=== PATIENT | male | born 1940 | race Caucasian/White ===

== ENCOUNTER 2018-03-16 09:47 | Inpatient (IN) ==
[2018-03-16] MEDS ORDERED: SODIUM CHLORIDE 0.9% 2,000 ML IV STA (10:35)
[2018-03-16] MEDS ORDERED: cefTRIAXone 1,000 MG in SODIUM CHLORIDE 0.9% 100 ML IV STA (10:35)
[2018-03-16 10:54] LABS: Basophils % 0.1 % (0.0-0.8); Hemoglobin 11.3 GM/DL (14.0-18.0); Immature Granulocytes % 0.8 %; Immature Granulocytes Absolute 0.08 #; Lymphocytes # 0.7 10*3/uL (1.4-4.0); Lymphocytes % 6.6 % (21.2-54.2); Mean Corpuscular HGB Conc 33.2 GM/DL (32-36); Mean Corpuscular Hemoglobin 32 PG (27-34); Mean Platelet Volume 11.4 FL (9.6-12.0); Monocytes # 0.9 10*3/uL (0.11-0.8); Monocytes % 8.7 % (1.7-12.7); Neutrophils # 8.6 10*3/uL (1.4-7.4); Neutrophils % 83.8 % (38.7-73.9); Platelet Count 160 T/CUMM (130-400); Red Blood Count 3.54 MC/CUMM (3.8-5.5); Red Cell Distribution Width 13.1 % (9.3-17.3); White Blood Count 10.3 T/CUMM (4-12)
[2018-03-16] MEDS ORDERED: DOPamine 800 MG/250 ML PREMIX IV PRN (11:32)
[2018-03-16] MEDS ORDERED: VANCOMYCIN INJ 1,000 MG in SODIUM CHLORIDE 0.9% 250 ML IV STA (11:58)
[2018-03-16 12:48] LABS: Albumin 3.1 G/DL (3.4-5.0); Bilirubin,Total 1.11 MG/DL (0.2-1.0); Calcium 9.2 MG/DL (8.5-10.1); Osmolality,Calculated 282.8 MOS/KG (273-304); Potassium 3.6 MMOL/L (3.5-5.1); Total Protein 6.5 G/DL (6.4-8.3)
[2018-03-16 13:04] LABS: Band Neutrophils 10 % (0-10); Lymphocytes 3 % (20-55); Segmented Neutrophils 80 % (50-85); Total Cells Counted 100
[2018-03-16 13:11] LABS: Hypochromasia Slight; Platelet Estimate Adequate; Poikilocytosis Slight
[2018-03-16] MEDS ORDERED: GLUCAGON 1 MG VIAL IM PRN (13:39)
[2018-03-16] MEDS ORDERED: DEXTROSE 50% 25 GM/50 ML VIAL IV PRN (13:39)
[2018-03-16] MEDS ORDERED: ZALEPLON 5 MG CAPSULE PO PRN (13:39)
[2018-03-16] MEDS: SODIUM CHLORIDE 0.9% 1,000 ML IV SCH ×2 (15:05→23:00)
[2018-03-16 16:30] LABS: Apearance,Urine Slightly Hazy (Clear); Bilirubin,Urine Negative (Negative); Blood, Urine Large mg/dL (Negative); Glucose,Urine (UA) Negative (Negative); Ketones,Urine Negative (Negative); Mucus,Urine Occasional /LPF (Occasional); Nitrite,Urine Negative (Negative); Protein,Urine 30 MG/DL; RBC,Urine 274 /HPF (0-4); Squamous Epithelial Cell,Urine Occasional /HPF (0-10); Urine Color Yellow (Yellow); Urine Specific Gravity 1.013 (1.001-1.035); Urine Urobilinogen < 2.0 EU/DL (0.2-1.0); WBC,Urine 7 /HPF (0-6)
[2018-03-16] MEDS: AZITHROMYCIN INJ 500 MG in SODIUM CHLORIDE 0.9% 250 ML IV SCH (17:08)
[2018-03-16] MEDS: INSULIN REGULAR 100 UNIT/ML SUBCUT SCH ×2 (17:09→21:07)
[2018-03-16] MEDS ORDERED: WARFARIN 4 MG TABLET PO SCH (18:00)
[2018-03-16] MEDS: ALBUTEROL/IPRATROPIUM 3 ML NEB RESP TX SCH (20:10)
[2018-03-16] MEDS: SIMVASTATIN 40 MG TABLET PO SCH (21:07)
[2018-03-16 23:11] LABS: ABG Base Excess -6.3 MMOL/L (-2.5-2.5); ABG HCO3 19.3 MMOL/L (20-26); ABG Oxygen Saturation 97.1 % (95-100); ABG PCO2 32.5 MM HG (35-48); ABG PH 7.359 (7.35-7.45); ABG PO2 95.8 MM HG (80-95); ABG TCO2 16.5 MMOL/L (23-27); Allen Test Positive; Pt O2 Delivery Device Other
[2018-03-16] MEDS ORDERED: POTASSIUM CHLORIDE 20 MEQ TABLET PO ONE (23:38)
[2018-03-16] MEDS ORDERED: diphenhydrAMINE 50 MG/1 ML VIAL IV ONE (23:38)
[2018-03-17] MEDS: ALBUTEROL/IPRATROPIUM 3 ML NEB RESP TX SCH ×4 (00:30→19:51)
[2018-03-17 03:06] LABS: Basophils % 0.2 % (0.0-0.8); Hemoglobin 10.3 GM/DL (14.0-18.0); Immature Granulocytes % 2.1 %; Immature Granulocytes Absolute 0.26 #; Lymphocytes # 0.7 10*3/uL (1.4-4.0); Lymphocytes % 5.9 % (21.2-54.2); Mean Corpuscular HGB Conc 33.2 GM/DL (32-36); Mean Corpuscular Hemoglobin 31 PG (27-34); Mean Corpuscular Volume 94.5 FL (87-102); Mean Platelet Volume 11.5 FL (9.6-12.0); Monocytes # 0.8 10*3/uL (0.11-0.8); Monocytes % 6.7 % (1.7-12.7); Neutrophils # 10.5 10*3/uL (1.4-7.4); Neutrophils % 85.1 % (38.7-73.9); Platelet Count 148 T/CUMM (130-400); Red Blood Count 3.28 MC/CUMM (3.8-5.5); Red Cell Distribution Width 13.4 % (9.3-17.3); White Blood Count 12.3 T/CUMM (4-12)
[2018-03-17 03:19] LABS: INR 4.1
[2018-03-17 03:24] LABS: PT Patient Result 40.8 SECS
[2018-03-17 03:35] LABS: Calcium 7.7 MG/DL (8.5-10.1); Osmolality,Calculated 289.1 MOS/KG (273-304); Potassium 4.3 MMOL/L (3.5-5.1)
[2018-03-17 03:44] LABS: Band Neutrophils 18 % (0-10); Hypochromasia Slight; Lymphocytes 10 % (20-55); Metamyelocytes 4 %; Myelocytes 2 %; Segmented Neutrophils 62 % (50-85); Total Cells Counted 100
[2018-03-17 03:45] LABS: Ovalocytes 1+; Platelet Estimate Normal
[2018-03-17 03:46] LABS: Polychromasia Few
[2018-03-17] MEDS: INSULIN REGULAR 100 UNIT/ML SUBCUT SCH ×3 (08:15→17:58)
[2018-03-17] MEDS: ASPIRIN EC 81 MG TABLET PO SCH (09:44)
[2018-03-17] MEDS: MAGNESIUM OXIDE 400 MG TABLET PO SCH (09:44)
[2018-03-17] MEDS: PANTOPRAZOLE 40 MG TABLET PO SCH (09:44)
[2018-03-17] MEDS: cefTRIAXone 1,000 MG in SYRINGE 1 EACH IV SCH (09:45)
[2018-03-17] MEDS: SODIUM CHLORIDE 0.9% 1,000 ML IV SCH ×2 (10:05→18:25)
[2018-03-17] MEDS: ACETAMINOPHEN 325 MG TABLET PO PRN (15:10)
[2018-03-17] MEDS: AZITHROMYCIN INJ 500 MG in SODIUM CHLORIDE 0.9% 250 ML IV SCH (16:08)
[2018-03-17] MEDS ORDERED: FUROSEMIDE 40 MG/4 ML VIAL IV ONE (16:51)
[2018-03-17] MEDS ORDERED: PHYTONADIONE 5 MG/5 ML ORAL.SYR PO ONE (18:00)
[2018-03-17] MEDS: LUNESTA 1 MG PO SCH (20:59)
[2018-03-17] MEDS: SIMVASTATIN 40 MG TABLET PO SCH (20:59)
[2018-03-17] MEDS: METOPROLOL TARTRATE 25 MG TABLET PO SCH (21:08)
[2018-03-18] MEDS: INSULIN REGULAR 100 UNIT/ML SUBCUT SCH ×5 (00:25→21:17)
[2018-03-18] MEDS: ALBUTEROL/IPRATROPIUM 3 ML NEB RESP TX SCH ×4 (00:51→19:18)
[2018-03-18 03:42] LABS: Basophils % 0.2 % (0.0-0.8); Eosinophils % 0.1 % (0.00-10.9); Hematocrit 30.5 VOL% (42.0-52.0); Hemoglobin 10.3 GM/DL (14.0-18.0); Immature Granulocytes % 0.3 %; Immature Granulocytes Absolute 0.04 #; Lymphocytes # 0.8 10*3/uL (1.4-4.0); Lymphocytes % 5.9 % (21.2-54.2); Mean Corpuscular HGB Conc 33.8 GM/DL (32-36); Mean Corpuscular Hemoglobin 31 PG (27-34); Mean Platelet Volume 11.7 FL (9.6-12.0); Monocytes # 0.7 10*3/uL (0.11-0.8); Monocytes % 5.1 % (1.7-12.7); Neutrophils # 11.6 10*3/uL (1.4-7.4); Neutrophils % 88.4 % (38.7-73.9); Platelet Count 169 T/CUMM (130-400); Red Blood Count 3.28 MC/CUMM (3.8-5.5); Red Cell Distribution Width 13.5 % (9.3-17.3); White Blood Count 13.1 T/CUMM (4-12)
[2018-03-18 03:48] LABS: INR 2.6
[2018-03-18 04:04] LABS: Albumin 2.2 G/DL (3.4-5.0); Calcium 7.9 MG/DL (8.5-10.1); Osmolality,Calculated 284.4 MOS/KG (273-304); Potassium 3.7 MMOL/L (3.5-5.1)
[2018-03-18 04:33] LABS: PT Patient Result 26.3 SECS
[2018-03-18 04:49] LABS: Band Neutrophils 4 % (0-10); Lymphocytes 3 % (20-55); Segmented Neutrophils 88 % (50-85); Total Cells Counted 100
[2018-03-18 04:50] LABS: Microcytosis Slight; Platelet Estimate Adequate
[2018-03-18] MEDS: METOPROLOL TARTRATE 25 MG TABLET PO SCH ×3 (08:44→21:05)
[2018-03-18] MEDS: ONDANSETRON 4 MG/2 ML VIAL IV PRN (08:44)
[2018-03-18] MEDS: cefTRIAXone 1,000 MG in SYRINGE 1 EACH IV SCH (08:45)
[2018-03-18] MEDS: LEVOFLOXACIN INJ 750 MG in PREMIX 1 EACH IV SCH (10:14)
[2018-03-18] MEDS: PANTOPRAZOLE 40 MG TABLET PO SCH (14:55)
[2018-03-18] MEDS: MAGNESIUM OXIDE 400 MG TABLET PO SCH (14:56)
[2018-03-18] MEDS: ASPIRIN EC 81 MG TABLET PO SCH (14:56)
[2018-03-18] MEDS: AZITHROMYCIN INJ 500 MG in SODIUM CHLORIDE 0.9% 250 ML IV SCH (16:20)
[2018-03-18] MEDS ORDERED: FUROSEMIDE 40 MG/4 ML VIAL IV ONE (16:29)
[2018-03-18] MEDS: GABAPENTIN 100 MG CAPSULE PO SCH ×2 (19:34→21:17)
[2018-03-18] MEDS: SIMVASTATIN 40 MG TABLET PO SCH (21:17)
[2018-03-18] MEDS: LUNESTA 1 MG PO SCH (21:17)
[2018-03-19] MEDS: ALBUTEROL/IPRATROPIUM 3 ML NEB RESP TX SCH ×4 (01:36→19:40)
[2018-03-19 04:13] LABS: Basophils % 0.2 % (0.0-0.8); Eosinophils % 0.2 % (0.00-10.9); Hematocrit 32.2 VOL% (42.0-52.0); Immature Granulocytes % 0.5 %; Immature Granulocytes Absolute 0.06 #; Lymphocytes # 0.8 10*3/uL (1.4-4.0); Mean Corpuscular HGB Conc 34.2 GM/DL (32-36); Mean Corpuscular Hemoglobin 32 PG (27-34); Mean Corpuscular Volume 93.3 FL (87-102); Monocytes # 0.7 10*3/uL (0.11-0.8); Monocytes % 5.7 % (1.7-12.7); Neutrophils % 86.4 % (38.7-73.9); Platelet Count 171 T/CUMM (130-400); Red Blood Count 3.45 MC/CUMM (3.8-5.5); Red Cell Distribution Width 13.2 % (9.3-17.3); White Blood Count 11.5 T/CUMM (4-12)
[2018-03-19 04:21] LABS: INR 1.2; PT Patient Result 12.2 SECS
[2018-03-19 04:43] LABS: Calcium 8.3 MG/DL (8.5-10.1); Osmolality,Calculated 282.7 MOS/KG (273-304)
[2018-03-19 04:58] LABS: Band Neutrophils 4 % (0-10); Eosinophils 1 % (0-10); Hypochromasia 1+; Lymphocytes 8 % (20-55); Ovalocytes Slight; Platelet Estimate Adequate; Segmented Neutrophils 80 % (50-85); Total Cells Counted 100
[2018-03-19 04:59] LABS: Microcytosis Slight
[2018-03-19] MEDS ORDERED: MAGNESIUM SULF RIDER 4 GM in PREMIX 1 EACH IV PRN (07:38)
[2018-03-19] MEDS: DORNASE ALFA 2.5 MG/2.5 ML VIAL RESP TX SCH ×2 (09:30→19:48)
[2018-03-19] MEDS: METOPROLOL TARTRATE 25 MG TABLET PO SCH ×3 (09:46→20:45)
[2018-03-19] MEDS: PANTOPRAZOLE 40 MG TABLET PO SCH (09:47)
[2018-03-19] MEDS: POTASSIUM CHLORIDE 20 MEQ TABLET PO SCH ×3 (09:47→17:29)
[2018-03-19] MEDS: cefTRIAXone 1,000 MG in SYRINGE 1 EACH IV SCH (09:48)
[2018-03-19] MEDS: MAGNESIUM OXIDE 400 MG TABLET PO SCH (09:48)
[2018-03-19] MEDS: ASPIRIN EC 81 MG TABLET PO SCH (09:48)
[2018-03-19] MEDS: GABAPENTIN 100 MG CAPSULE PO SCH ×3 (09:49→20:45)
[2018-03-19] MEDS: INSULIN REGULAR 100 UNIT/ML SUBCUT SCH ×4 (09:59→20:45)
[2018-03-19] MEDS: LEVOFLOXACIN INJ 750 MG in PREMIX 1 EACH IV SCH (10:00)
[2018-03-19] MEDS: MAGNESIUM SULF RIDER 2 GM in PREMIX 1 EACH IV PRN (11:41)
[2018-03-19] MEDS ORDERED: DIGOXIN 0.5 MG/2 ML AMP IV ONE (13:58)
[2018-03-19] MEDS: WARFARIN 4 MG TABLET PO SCH (17:29)
[2018-03-19] MEDS ORDERED: DIGOXIN 0.25 MG TABLET PO ONE (20:00)
[2018-03-19] MEDS: SIMVASTATIN 40 MG TABLET PO SCH (20:44)
[2018-03-19] MEDS: LUNESTA 1 MG PO SCH (20:44)
[2018-03-20] MEDS: ALBUTEROL/IPRATROPIUM 3 ML NEB RESP TX SCH ×4 (01:10→19:23)
[2018-03-20 04:27] LABS: Basophils % 0.1 % (0.0-0.8); Eosinophils % 0.2 % (0.00-10.9); Hematocrit 30.2 VOL% (42.0-52.0); Hemoglobin 10.4 GM/DL (14.0-18.0); Immature Granulocytes % 0.8 %; Lymphocytes # 0.9 10*3/uL (1.4-4.0); Lymphocytes % 7.6 % (21.2-54.2); Mean Corpuscular HGB Conc 34.4 GM/DL (32-36); Mean Corpuscular Hemoglobin 32 PG (27-34); Mean Corpuscular Volume 91.5 FL (87-102); Mean Platelet Volume 12.5 FL (9.6-12.0); Monocytes # 0.8 10*3/uL (0.11-0.8); Monocytes % 6.2 % (1.7-12.7); Neutrophils # 10.2 10*3/uL (1.4-7.4); Neutrophils % 85.1 % (38.7-73.9); Platelet Count 164 T/CUMM (130-400); Red Cell Distribution Width 13.3 % (9.3-17.3)
[2018-03-20 04:32] LABS: INR 1.3; PT Patient Result 13.1 SECS
[2018-03-20 04:56] LABS: Calcium 8.3 MG/DL (8.5-10.1); Osmolality,Calculated 275.1 MOS/KG (273-304); Potassium 3.6 MMOL/L (3.5-5.1)
[2018-03-20] MEDS: DORNASE ALFA 2.5 MG/2.5 ML VIAL RESP TX SCH ×2 (07:48→19:23)
[2018-03-20] MEDS: INSULIN REGULAR 100 UNIT/ML SUBCUT SCH ×3 (09:26→17:08)
[2018-03-20] MEDS: MAGNESIUM OXIDE 400 MG TABLET PO SCH (09:27)
[2018-03-20] MEDS: ASPIRIN EC 81 MG TABLET PO SCH (09:27)
[2018-03-20] MEDS: PANTOPRAZOLE 40 MG TABLET PO SCH (09:27)
[2018-03-20] MEDS: cefTRIAXone 1,000 MG in SYRINGE 1 EACH IV SCH (09:28)
[2018-03-20] MEDS: METOPROLOL TARTRATE 25 MG TABLET PO SCH ×3 (09:28→21:21)
[2018-03-20] MEDS: GABAPENTIN 100 MG CAPSULE PO SCH ×3 (09:28→21:21)
[2018-03-20] MEDS: LEVOFLOXACIN INJ 750 MG in PREMIX 1 EACH IV SCH (09:31)
[2018-03-20] MEDS ORDERED: DIGOXIN 0.125 MG TABLET PO SCH (13:00)
[2018-03-20] MEDS: WARFARIN 4 MG TABLET PO SCH (17:08)
[2018-03-20] MEDS: ACETAMINOPHEN 325 MG TABLET PO PRN (17:08)
[2018-03-20] MEDS: SIMVASTATIN 40 MG TABLET PO SCH (21:21)
[2018-03-20] MEDS: LUNESTA 1 MG PO SCH (21:22)
[2018-03-21] MEDS: ALBUTEROL/IPRATROPIUM 3 ML NEB RESP TX SCH ×4 (00:34→19:22)
[2018-03-21 04:12] LABS: Basophils % 0.2 % (0.0-0.8); Eosinophils % 0.1 % (0.00-10.9); Hematocrit 34.4 VOL% (42.0-52.0); Immature Granulocytes % 0.9 %; Immature Granulocytes Absolute 0.12 #; Lymphocytes # 0.8 10*3/uL (1.4-4.0); Lymphocytes % 5.5 % (21.2-54.2); Mean Corpuscular HGB Conc 34.9 GM/DL (32-36); Mean Corpuscular Hemoglobin 32 PG (27-34); Mean Corpuscular Volume 90.8 FL (87-102); Mean Platelet Volume 11.7 FL (9.6-12.0); Monocytes # 0.7 10*3/uL (0.11-0.8); Neutrophils # 12.5 10*3/uL (1.4-7.4); Neutrophils % 88.3 % (38.7-73.9); Platelet Count 203 T/CUMM (130-400); Red Blood Count 3.79 MC/CUMM (3.8-5.5); Red Cell Distribution Width 13.2 % (9.3-17.3); White Blood Count 14.1 T/CUMM (4-12)
[2018-03-21 04:22] LABS: INR 1.5; PT Patient Result 16.1 SECS
[2018-03-21 04:58] LABS: Calcium 8.3 MG/DL (8.5-10.1); Osmolality,Calculated 279.8 MOS/KG (273-304); Potassium 3.8 MMOL/L (3.5-5.1)
[2018-03-21] MEDS: INSULIN REGULAR 100 UNIT/ML SUBCUT SCH ×4 (07:02→17:34)
[2018-03-21] MEDS: DORNASE ALFA 2.5 MG/2.5 ML VIAL RESP TX SCH ×2 (07:20→19:22)
[2018-03-21] MEDS ORDERED: AMIODARONE INJ 150 MG in DEXTROSE 5% 100 ML IV ONE (09:16)
[2018-03-21] MEDS ORDERED: RIVAROXABAN 20 MG TABLET PO ONE (09:20)
[2018-03-21] MEDS: GABAPENTIN 100 MG CAPSULE PO SCH ×3 (09:26→20:51)
[2018-03-21] MEDS: ASPIRIN EC 81 MG TABLET PO SCH (09:26)
[2018-03-21] MEDS: cefTRIAXone 1,000 MG in SYRINGE 1 EACH IV SCH (09:26)
[2018-03-21] MEDS: MAGNESIUM OXIDE 400 MG TABLET PO SCH (09:26)
[2018-03-21] MEDS: METOPROLOL TARTRATE 25 MG TABLET PO SCH ×3 (09:26→20:50)
[2018-03-21] MEDS: PANTOPRAZOLE 40 MG TABLET PO SCH (09:26)
[2018-03-21] MEDS: MAGNESIUM SULF RIDER 2 GM in PREMIX 1 EACH IV PRN (09:27)
[2018-03-21] MEDS ORDERED: AMIODARONE INJ 450 MG in DEXTROSE 5% 241 ML IV SCH (09:30)
[2018-03-21] MEDS: PIPERACILLIN/TAZOBACTAM 3,375 MG in SODIUM CHLORIDE 0.9% 100 ML IV SCH ×2 (11:29→17:35)
[2018-03-21] MEDS ORDERED: AMIODARONE 200 MG TABLET PO ONE ×2 (13:36→17:03)
[2018-03-21] MEDS ORDERED: diphenhydrAMINE CAP 25 MG CAPSULE PO ONE (13:55)
[2018-03-21] MEDS ORDERED: MAGNESIUM SULF RIDER 2 GM in PREMIX 1 EACH IV PRN (13:55)
[2018-03-21] MEDS ORDERED: DIAZEPAM 5 MG TABLET PO ONE (13:55)
[2018-03-21] MEDS ORDERED: POTASSIUM CHLORIDE RIDER 10 MEQ in PREMIX 1 EACH IV PRN (13:55)
[2018-03-21] MEDS ORDERED: diphenhydrAMINE CAP 25 MG CAPSULE ONE (14:00)
[2018-03-21] MEDS ORDERED: SODIUM CHLORIDE 0.45% 1,000 ML IV SCH (14:00)
[2018-03-21] MEDS ORDERED: MIDAZOLAM 2 MG/2 ML VIAL ONE (14:59)
[2018-03-21] MEDS ORDERED: fentaNYL 100 MCG/2 ML VIAL ONE (15:00)
[2018-03-21] MEDS ORDERED: HEPARIN 5,000 UNIT/1 ML VIAL ONE (15:00)
[2018-03-21] MEDS ORDERED: LIDOCAINE 1% 20 ML VIAL ONE (15:00)
[2018-03-21] MEDS: AMIODARONE INJ 450 MG in DEXTROSE 5% 241 ML IV SCH (15:30)
[2018-03-21] MEDS ORDERED: TIROFIBAN 5,000 MCG/100 ML PREMIX IV ONE (15:42)
[2018-03-21] MEDS ORDERED: TICAGRELOR 90 MG TABLET ONE (16:26)
[2018-03-21] MEDS ORDERED: TIROFIBAN 5,000 MCG/100 ML PREMIX IV SCH (16:30)
[2018-03-21] MEDS ORDERED: fentaNYL 100 MCG/2 ML VIAL IV PRN (16:58)
[2018-03-21] MEDS: ACETAMINOPHEN 325 MG TABLET PO PRN (18:15)
[2018-03-21 18:18] LABS: Troponin I 0.632 NG/ML (0.00-0.045)
[2018-03-21] MEDS: SIMVASTATIN 20 MG TABLET PO SCH (20:50)
[2018-03-21] MEDS: TICAGRELOR 90 MG TABLET PO SCH (20:50)
[2018-03-21] MEDS: AMIODARONE 200 MG TABLET PO SCH (20:50)
[2018-03-21] MEDS: LUNESTA 1 MG PO SCH (20:50)
[2018-03-22] MEDS: ALBUTEROL/IPRATROPIUM 3 ML NEB RESP TX SCH ×4 (00:58→19:57)
[2018-03-22 01:22] LABS: Basophils % 0.2 % (0.0-0.8); Eosinophils # 0.1 10*3/uL (0.0-0.87); Eosinophils % 0.3 % (0.00-10.9); Hematocrit 30.7 VOL% (42.0-52.0); Hemoglobin 10.7 GM/DL (14.0-18.0); Immature Granulocytes % 1.7 %; Lymphocytes % 5.6 % (21.2-54.2); Mean Corpuscular HGB Conc 34.9 GM/DL (32-36); Mean Corpuscular Hemoglobin 32 PG (27-34); Mean Corpuscular Volume 90.8 FL (87-102); Mean Platelet Volume 11.4 FL (9.6-12.0); Monocytes # 1.1 10*3/uL (0.11-0.8); Monocytes % 5.8 % (1.7-12.7); Neutrophils # 15.6 10*3/uL (1.4-7.4); Neutrophils % 86.4 % (38.7-73.9); Platelet Count 222 T/CUMM (130-400); Red Blood Count 3.38 MC/CUMM (3.8-5.5); Red Cell Distribution Width 13.4 % (9.3-17.3)
[2018-03-22 01:25] LABS: Calcium 7.9 MG/DL (8.5-10.1); Potassium 3.6 MMOL/L (3.5-5.1)
[2018-03-22 01:30] LABS: Albumin 1.5 G/DL (3.4-5.0); Bilirubin,Total 1.6 MG/DL (0.2-1.0); Calcium 7.7 MG/DL (8.5-10.1); Osmolality,Calculated 277.8 MOS/KG (273-304); Potassium 3.6 MMOL/L (3.5-5.1)
[2018-03-22 01:31] LABS: Troponin I 0.556 NG/ML (0.00-0.045)
[2018-03-22] MEDS: INSULIN REGULAR 100 UNIT/ML SUBCUT SCH ×5 (04:15→21:22)
[2018-03-22] MEDS: PIPERACILLIN/TAZOBACTAM 3,375 MG in SODIUM CHLORIDE 0.9% 100 ML IV SCH ×3 (04:30→21:22)
[2018-03-22] MEDS: DORNASE ALFA 2.5 MG/2.5 ML VIAL RESP TX SCH ×2 (07:42→20:02)
[2018-03-22] MEDS: PANTOPRAZOLE 40 MG TABLET PO SCH (08:38)
[2018-03-22] MEDS: MAGNESIUM OXIDE 400 MG TABLET PO SCH (08:38)
[2018-03-22] MEDS: AMIODARONE 200 MG TABLET PO SCH ×2 (08:39→21:01)
[2018-03-22] MEDS: METOPROLOL TARTRATE 25 MG TABLET PO SCH (08:39)
[2018-03-22] MEDS: ASPIRIN CHEW 81 MG TABLET PO SCH (08:40)
[2018-03-22] MEDS: GABAPENTIN 100 MG CAPSULE PO SCH ×3 (08:40→21:02)
[2018-03-22] MEDS: POTASSIUM CHLORIDE 20 MEQ TABLET PO PRN (08:41)
[2018-03-22] MEDS: TICAGRELOR 90 MG TABLET PO SCH ×2 (08:47→21:01)
[2018-03-22 09:21] LABS: Troponin I 0.505 NG/ML (0.00-0.045)
[2018-03-22] MEDS: LOSARTAN 25 MG TABLET PO SCH (16:09)
[2018-03-22] MEDS ORDERED: RIVAROXABAN 20 MG TABLET PO SCH (17:00)
[2018-03-22] MEDS: LUNESTA 1 MG PO SCH (21:01)
[2018-03-22] MEDS: CARVEDILOL 3.125 MG TABLET PO SCH (21:02)
[2018-03-22] MEDS: SIMVASTATIN 20 MG TABLET PO SCH (21:02)
[2018-03-22] MEDS: AMIODARONE INJ 450 MG in DEXTROSE 5% 241 ML IV SCH (21:43)
[2018-03-23] MEDS: ALBUTEROL/IPRATROPIUM 3 ML NEB RESP TX SCH ×4 (01:50→18:55)
[2018-03-23] MEDS: PIPERACILLIN/TAZOBACTAM 3,375 MG in SODIUM CHLORIDE 0.9% 100 ML IV SCH ×2 (05:00→12:16)
[2018-03-23 06:37] LABS: Basophils % 0.2 % (0.0-0.8); Eosinophils # 0.1 10*3/uL (0.0-0.87); Eosinophils % 0.4 % (0.00-10.9); Hematocrit 27.7 VOL% (42.0-52.0); Hemoglobin 9.8 GM/DL (14.0-18.0); Immature Granulocytes % 0.9 %; Immature Granulocytes Absolute 0.18 #; Lymphocytes # 0.9 10*3/uL (1.4-4.0); Lymphocytes % 4.6 % (21.2-54.2); Mean Corpuscular HGB Conc 35.4 GM/DL (32-36); Mean Corpuscular Hemoglobin 32 PG (27-34); Mean Corpuscular Volume 89.1 FL (87-102); Mean Platelet Volume 11.8 FL (9.6-12.0); Monocytes # 0.8 10*3/uL (0.11-0.8); Monocytes % 4.1 % (1.7-12.7); Neutrophils # 17.2 10*3/uL (1.4-7.4); Neutrophils % 89.8 % (38.7-73.9); Platelet Count 241 T/CUMM (130-400); Red Blood Count 3.11 MC/CUMM (3.8-5.5); Red Cell Distribution Width 13.7 % (9.3-17.3); White Blood Count 19.1 T/CUMM (4-12)
[2018-03-23 06:58] LABS: Albumin 1.5 G/DL (3.4-5.0); Bilirubin,Total 1.6 MG/DL (0.2-1.0); Calcium 8.2 MG/DL (8.5-10.1); Potassium 3.9 MMOL/L (3.5-5.1)
[2018-03-23 07:19] LABS: Band Neutrophils 3 % (0-10); Burr Cells Few; Lymphocytes 8 % (20-55); Platelet Estimate Normal; Segmented Neutrophils 88 % (50-85); Total Cells Counted 100
[2018-03-23] MEDS: DORNASE ALFA 2.5 MG/2.5 ML VIAL RESP TX SCH ×2 (07:30→18:55)
[2018-03-23] MEDS: TICAGRELOR 90 MG TABLET PO SCH ×2 (08:51→21:08)
[2018-03-23] MEDS: LOSARTAN 25 MG TABLET PO SCH (08:51)
[2018-03-23] MEDS: ASPIRIN CHEW 81 MG TABLET PO SCH (08:52)
[2018-03-23] MEDS: AMIODARONE 200 MG TABLET PO SCH (08:52)
[2018-03-23] MEDS: CARVEDILOL 3.125 MG TABLET PO SCH ×2 (08:52→21:08)
[2018-03-23] MEDS: GABAPENTIN 100 MG CAPSULE PO SCH ×3 (08:52→21:09)
[2018-03-23] MEDS: MAGNESIUM OXIDE 400 MG TABLET PO SCH (08:52)
[2018-03-23] MEDS: INSULIN REGULAR 100 UNIT/ML SUBCUT SCH ×4 (08:52→21:09)
[2018-03-23] MEDS: PANTOPRAZOLE 40 MG TABLET PO SCH (08:52)
[2018-03-23] MEDS ORDERED: BISACODYL 10 MG SUPP RECTAL PRN (12:01)
[2018-03-23] MEDS: LACTULOSE 20 GM/30 ML UDCUP PO SCH ×2 (14:42→21:09)
[2018-03-23] MEDS: MEROPENEM 500 MG in SODIUM CHLORIDE 0.9% 100 ML IV SCH (16:39)
[2018-03-23] MEDS: LUNESTA 1 MG PO SCH (21:08)
[2018-03-24] MEDS: ALBUTEROL/IPRATROPIUM 3 ML NEB RESP TX SCH ×4 (00:35→20:06)
[2018-03-24] MEDS: MEROPENEM 500 MG in SODIUM CHLORIDE 0.9% 100 ML IV SCH ×3 (01:20→17:00)
[2018-03-24 07:10] LABS: Basophils # 0.1 10*3/uL (0.0-0.2); Basophils % 0.3 % (0.0-0.8); Eosinophils # 0.1 10*3/uL (0.0-0.87); Eosinophils % 0.4 % (0.00-10.9); Hemoglobin 11.3 GM/DL (14.0-18.0); Immature Granulocytes % 1.4 %; Immature Granulocytes Absolute 0.35 #; Lymphocytes # 1.3 10*3/uL (1.4-4.0); Lymphocytes % 5.1 % (21.2-54.2); Mean Corpuscular HGB Conc 36.5 GM/DL (32-36); Mean Corpuscular Hemoglobin 32 PG (27-34); Mean Corpuscular Volume 87.8 FL (87-102); Mean Platelet Volume 11.8 FL (9.6-12.0); Monocytes # 1.2 10*3/uL (0.11-0.8); Monocytes % 4.8 % (1.7-12.7); NRBC # 0.02 10*3/uL; Neutrophils # 22.3 10*3/uL (1.4-7.4); Platelet Count 262 T/CUMM (130-400); Red Blood Count 3.53 MC/CUMM (3.8-5.5); Red Cell Distribution Width 13.7 % (9.3-17.3); White Blood Count 25.3 T/CUMM (4-12)
[2018-03-24 07:30] LABS: Anisocytosis 1+; Band Neutrophils 2 % (0-10); Lymphocytes 5 % (20-55); Platelet Estimate Normal; Segmented Neutrophils 84 % (50-85); Total Cells Counted 100
[2018-03-24 07:31] LABS: Poikilocytosis Slight
[2018-03-24] MEDS: DORNASE ALFA 2.5 MG/2.5 ML VIAL RESP TX SCH ×2 (07:49→20:06)
[2018-03-24 08:09] LABS: Albumin 1.6 G/DL (3.4-5.0); Bilirubin,Total 1.6 MG/DL (0.2-1.0); Calcium 8.1 MG/DL (8.5-10.1); Osmolality,Calculated 282.5 MOS/KG (273-304); Potassium 3.5 MMOL/L (3.5-5.1)
[2018-03-24] MEDS: INSULIN REGULAR 100 UNIT/ML SUBCUT SCH ×4 (08:28→21:25)
[2018-03-24] MEDS: POTASSIUM CHLORIDE 20 MEQ TABLET PO PRN (08:28)
[2018-03-24] MEDS: ASPIRIN CHEW 81 MG TABLET PO SCH (08:29)
[2018-03-24] MEDS: GABAPENTIN 100 MG CAPSULE PO SCH ×3 (08:29→21:25)
[2018-03-24] MEDS: PANTOPRAZOLE 40 MG TABLET PO SCH (08:29)
[2018-03-24] MEDS: LACTULOSE 20 GM/30 ML UDCUP PO SCH ×2 (08:29→21:34)
[2018-03-24] MEDS: TICAGRELOR 90 MG TABLET PO SCH ×2 (08:29→21:25)
[2018-03-24] MEDS: CARVEDILOL 3.125 MG TABLET PO SCH ×2 (08:29→21:25)
[2018-03-24] MEDS: LOSARTAN 25 MG TABLET PO SCH (08:29)
[2018-03-24] MEDS: MAGNESIUM OXIDE 400 MG TABLET PO SCH (08:29)
[2018-03-24] MEDS: MAGNESIUM SULF RIDER 2 GM in PREMIX 1 EACH IV PRN (10:45)
[2018-03-24] MEDS ORDERED: BENZONATATE 100 MG CAPSULE PO PRN (13:15)
[2018-03-24] MEDS ORDERED: VANCOMYCIN INJ 1,000 MG in SODIUM CHLORIDE 0.9% 250 ML IV SCH ×2 (13:30→16:00)
[2018-03-24] MEDS ORDERED: DEXT 5% NACL 0.45% KCL 20 MEQ 20 MEQ/1,000 ML BAG IV SCH (13:30)
[2018-03-24] MEDS: BENZONATATE 100 MG CAPSULE PO SCH ×2 (14:30→21:25)
[2018-03-24] MEDS: FUROSEMIDE 20 MG/2 ML VIAL IV SCH (14:31)
[2018-03-24] MEDS: cefTAZidime 1,000 MG in SYRINGE 1 EACH IV SCH ×2 (14:41→23:54)
[2018-03-24] MEDS ORDERED: CLORAZEPATE 3.75 MG TABLET PO PRN (17:15)
[2018-03-24] MEDS ORDERED: ZINC OXIDE PASTE 113 GM TUBE TOP PRN (18:39)
[2018-03-24] MEDS: MIRTAZAPINE 15 MG TABLET PO SCH (21:25)
[2018-03-24] MEDS: VANCOMYCIN INJ 250 MG in SODIUM CHLORIDE 0.9% 100 ML IV SCH (21:26)
[2018-03-24] MEDS: LUNESTA 1 MG PO SCH (21:26)
[2018-03-25] MEDS: ALBUTEROL/IPRATROPIUM 3 ML NEB RESP TX SCH ×4 (01:57→20:20)
[2018-03-25] MEDS: MEROPENEM 500 MG in SODIUM CHLORIDE 0.9% 100 ML IV SCH ×3 (02:41→17:45)
[2018-03-25 06:29] LABS: Basophils % 0.1 % (0.0-0.8); Eosinophils # 0.1 10*3/uL (0.0-0.87); Eosinophils % 0.3 % (0.00-10.9); Hemoglobin 11.2 GM/DL (14.0-18.0); Immature Granulocytes % 0.9 %; Lymphocytes # 1.1 10*3/uL (1.4-4.0); Lymphocytes % 4.8 % (21.2-54.2); Mean Corpuscular Hemoglobin 32 PG (27-34); Mean Corpuscular Volume 90.1 FL (87-102); Mean Platelet Volume 11.3 FL (9.6-12.0); Monocytes # 1.1 10*3/uL (0.11-0.8); Monocytes % 5.1 % (1.7-12.7); NRBC # 0.06 10*3/uL; Neutrophils # 19.3 10*3/uL (1.4-7.4); Neutrophils % 88.8 % (38.7-73.9); Platelet Count 379 T/CUMM (130-400); Red Blood Count 3.55 MC/CUMM (3.8-5.5); Red Cell Distribution Width 13.9 % (9.3-17.3); White Blood Count 21.7 T/CUMM (4-12)
[2018-03-25 06:44] LABS: Albumin 1.6 G/DL (3.4-5.0); Bilirubin,Total 1.7 MG/DL (0.2-1.0); Calcium 8.5 MG/DL (8.5-10.1); Osmolality,Calculated 281.7 MOS/KG (273-304); Potassium 3.7 MMOL/L (3.5-5.1); Total Protein 5.3 G/DL (6.4-8.3)
[2018-03-25 06:54] LABS: Giant Platelets Few; Hypochromasia 1+; Lymphocytes 2 % (20-55); Nucleated Red Blood Cells 2 (0-5); Ovalocytes Slight; Platelet Estimate Adequate; Segmented Neutrophils 92 % (50-85); Total Cells Counted 100
[2018-03-25] MEDS: DORNASE ALFA 2.5 MG/2.5 ML VIAL RESP TX SCH ×2 (08:31→20:20)
[2018-03-25] MEDS: VANCOMYCIN INJ 250 MG in SODIUM CHLORIDE 0.9% 100 ML IV SCH (10:15)
[2018-03-25] MEDS: MAGNESIUM OXIDE 400 MG TABLET PO SCH (10:18)
[2018-03-25] MEDS: BENZONATATE 100 MG CAPSULE PO SCH ×3 (10:18→22:16)
[2018-03-25] MEDS: PANTOPRAZOLE 40 MG TABLET PO SCH (10:18)
[2018-03-25] MEDS: GABAPENTIN 100 MG CAPSULE PO SCH ×2 (10:18→14:31)
[2018-03-25] MEDS: FUROSEMIDE 20 MG/2 ML VIAL IV SCH (10:19)
[2018-03-25] MEDS: ASPIRIN CHEW 81 MG TABLET PO SCH (10:19)
[2018-03-25] MEDS: cefTAZidime 1,000 MG in SYRINGE 1 EACH IV SCH ×3 (10:20→22:18)
[2018-03-25] MEDS: INSULIN REGULAR 100 UNIT/ML SUBCUT SCH ×4 (10:21→22:27)
[2018-03-25] MEDS: TICAGRELOR 90 MG TABLET PO SCH ×2 (10:22→22:17)
[2018-03-25] MEDS: CARVEDILOL 3.125 MG TABLET PO SCH ×2 (10:22→22:17)
[2018-03-25] MEDS: LACTULOSE 20 GM/30 ML UDCUP PO SCH ×2 (10:23→22:28)
[2018-03-25] MEDS: LOSARTAN 25 MG TABLET PO SCH (10:23)
[2018-03-25 11:43] LABS: ABG Base Excess 2.3 MMOL/L (-2.5-2.5); ABG HCO3 26.3 MMOL/L (20-26); ABG PH 7.521 (7.35-7.45); ABG PO2 58.5 MM HG (80-95); ABG TCO2 21.9 MMOL/L (23-27)
[2018-03-25] MEDS ORDERED: VANCOMYCIN INJ 1,000 MG in SODIUM CHLORIDE 0.9% 250 ML IV SCH (15:00)
[2018-03-25 16:41] LABS: Apearance,Urine CLEAR (Clear); Bilirubin,Urine Negative (Negative); Blood, Urine Moderate mg/dL (Negative); Glucose,Urine (UA) Negative (Negative); Ketones,Urine Negative (Negative); Mucus,Urine Occasional /LPF (Occasional); Nitrite,Urine Negative (Negative); Protein,Urine Negative; RBC,Urine 74 /HPF (0-4); Urine Color Yellow (Yellow); Urine Urobilinogen < 2.0 EU/DL (0.2-1.0); WBC,Urine 3 /HPF (0-6)
[2018-03-25] MEDS: VANCOMYCIN INJ 1,000 MG in SODIUM CHLORIDE 0.9% 250 ML IV SCH (17:30)
[2018-03-25] MEDS: MIRTAZAPINE 15 MG TABLET PO SCH (22:17)
[2018-03-25] MEDS: LUNESTA 1 MG PO SCH (22:26)
[2018-03-26] MEDS: ALBUTEROL/IPRATROPIUM 3 ML NEB RESP TX SCH ×4 (01:03→20:20)
[2018-03-26] MEDS: MEROPENEM 500 MG in SODIUM CHLORIDE 0.9% 100 ML IV SCH ×3 (01:40→18:57)
[2018-03-26] MEDS: VANCOMYCIN INJ 1,000 MG in SODIUM CHLORIDE 0.9% 250 ML IV SCH ×2 (03:30→14:42)
[2018-03-26 05:55] LABS: Basophils % 0.2 % (0.0-0.8); Eosinophils # 0.2 10*3/uL (0.0-0.87); Eosinophils % 0.8 % (0.00-10.9); Hemoglobin 10.3 GM/DL (14.0-18.0); Immature Granulocytes % 1.1 %; Immature Granulocytes Absolute 0.21 #; Lymphocytes % 4.9 % (21.2-54.2); Mean Corpuscular HGB Conc 35.5 GM/DL (32-36); Mean Corpuscular Hemoglobin 32 PG (27-34); Mean Corpuscular Volume 89.8 FL (87-102); Mean Platelet Volume 10.8 FL (9.6-12.0); Monocytes % 5.2 % (1.7-12.7); NRBC # 0.03 10*3/uL; Neutrophils # 17.2 10*3/uL (1.4-7.4); Neutrophils % 87.8 % (38.7-73.9); Platelet Count 441 T/CUMM (130-400); Red Blood Count 3.23 MC/CUMM (3.8-5.5); White Blood Count 19.5 T/CUMM (4-12)
[2018-03-26 06:19] LABS: Hypochromasia 1+; Lymphocytes 2 % (20-55); Polychromasia Slight; Segmented Neutrophils 94 % (50-85); Total Cells Counted 100
[2018-03-26 06:20] LABS: Microcytosis Slight; Platelet Estimate Increased
[2018-03-26] MEDS: cefTAZidime 1,000 MG in SYRINGE 1 EACH IV SCH ×3 (06:20→21:35)
[2018-03-26 06:33] LABS: Albumin 1.6 G/DL (3.4-5.0); Bilirubin,Total 1.5 MG/DL (0.2-1.0); Calcium 8.2 MG/DL (8.5-10.1); Osmolality,Calculated 284.4 MOS/KG (273-304); Potassium 3.2 MMOL/L (3.5-5.1)
[2018-03-26] MEDS: DORNASE ALFA 2.5 MG/2.5 ML VIAL RESP TX SCH ×2 (07:28→20:20)
[2018-03-26] MEDS: INSULIN REGULAR 100 UNIT/ML SUBCUT SCH ×4 (09:35→21:44)
[2018-03-26] MEDS: FUROSEMIDE 20 MG/2 ML VIAL IV SCH (10:26)
[2018-03-26] MEDS: BENZONATATE 100 MG CAPSULE PO SCH ×3 (10:27→21:34)
[2018-03-26] MEDS: DUTASTERIDE 0.5 MG CAPSULE PO SCH (10:27)
[2018-03-26] MEDS: PANTOPRAZOLE 40 MG TABLET PO SCH (10:27)
[2018-03-26] MEDS: MAGNESIUM OXIDE 400 MG TABLET PO SCH (10:27)
[2018-03-26] MEDS: TICAGRELOR 90 MG TABLET PO SCH ×2 (10:27→21:34)
[2018-03-26] MEDS: POTASSIUM CHLORIDE 20 MEQ TABLET PO PRN ×2 (10:27→12:35)
[2018-03-26] MEDS: LOSARTAN 25 MG TABLET PO SCH (10:28)
[2018-03-26] MEDS: CARVEDILOL 3.125 MG TABLET PO SCH ×2 (10:28→21:33)
[2018-03-26] MEDS: LACTULOSE 20 GM/30 ML UDCUP PO SCH ×2 (10:28→21:44)
[2018-03-26] MEDS: ASPIRIN CHEW 81 MG TABLET PO SCH (10:28)
[2018-03-26] MEDS ORDERED: POTASSIUM CHLORIDE 20 MEQ/15 ML UDCUP PO ONE (16:28)
[2018-03-26] MEDS: ENOXAPARIN 40 MG/0.4 ML SYRINGE SUBCUT SCH (21:34)
[2018-03-26] MEDS: LUNESTA 1 MG PO SCH (21:43)
[2018-03-27 01:04] LABS: Basophils % 0.2 % (0.0-0.8); Eosinophils # 0.1 10*3/uL (0.0-0.87); Eosinophils % 0.7 % (0.00-10.9); Hematocrit 28.6 VOL% (42.0-52.0); Hemoglobin 9.8 GM/DL (14.0-18.0); Immature Granulocytes % 0.8 %; Immature Granulocytes Absolute 0.14 #; Lymphocytes % 5.9 % (21.2-54.2); Mean Corpuscular HGB Conc 34.3 GM/DL (32-36); Mean Corpuscular Hemoglobin 32 PG (27-34); Mean Corpuscular Volume 92.9 FL (87-102); Mean Platelet Volume 10.4 FL (9.6-12.0); Monocytes # 0.9 10*3/uL (0.11-0.8); Monocytes % 5.6 % (1.7-12.7); Neutrophils # 14.7 10*3/uL (1.4-7.4); Neutrophils % 86.8 % (38.7-73.9); Platelet Count 474 T/CUMM (130-400); Red Blood Count 3.08 MC/CUMM (3.8-5.5); Red Cell Distribution Width 14.4 % (9.3-17.3); White Blood Count 16.9 T/CUMM (4-12)
[2018-03-27 01:22] LABS: Albumin 1.6 G/DL (3.4-5.0); Bilirubin,Total 1.7 MG/DL (0.2-1.0); Calcium 7.9 MG/DL (8.5-10.1); Osmolality,Calculated 287.1 MOS/KG (273-304); Total Protein 5.3 G/DL (6.4-8.3)
[2018-03-27] MEDS: ALBUTEROL/IPRATROPIUM 3 ML NEB RESP TX SCH ×4 (01:32→19:14)
[2018-03-27] MEDS ORDERED: MEROPENEM 500 MG in SODIUM CHLORIDE 0.9% 100 ML IV SCH ×2 (02:00→18:00)
[2018-03-27] MEDS: VANCOMYCIN INJ 1,000 MG in SODIUM CHLORIDE 0.9% 250 ML IV SCH (02:40)
[2018-03-27] MEDS: MEROPENEM 500 MG in SODIUM CHLORIDE 0.9% 100 ML IV SCH (04:18)
[2018-03-27] MEDS: cefTAZidime 1,000 MG in SYRINGE 1 EACH IV SCH ×3 (06:05→22:02)
[2018-03-27] MEDS: INSULIN REGULAR 100 UNIT/ML SUBCUT SCH ×4 (08:24→21:44)
[2018-03-27] MEDS: DORNASE ALFA 2.5 MG/2.5 ML VIAL RESP TX SCH ×2 (08:44→19:14)
[2018-03-27] MEDS: BENZONATATE 100 MG CAPSULE PO SCH ×3 (09:07→21:43)
[2018-03-27] MEDS: PANTOPRAZOLE 40 MG TABLET PO SCH (09:07)
[2018-03-27] MEDS: TICAGRELOR 90 MG TABLET PO SCH ×2 (09:08→21:44)
[2018-03-27] MEDS: LOSARTAN 25 MG TABLET PO SCH (09:08)
[2018-03-27] MEDS: MAGNESIUM OXIDE 400 MG TABLET PO SCH (09:08)
[2018-03-27] MEDS: DUTASTERIDE 0.5 MG CAPSULE PO SCH (09:08)
[2018-03-27] MEDS: CARVEDILOL 3.125 MG TABLET PO SCH ×2 (09:08→21:44)
[2018-03-27] MEDS: ASPIRIN CHEW 81 MG TABLET PO SCH (09:08)
[2018-03-27] MEDS: FUROSEMIDE 20 MG/2 ML VIAL IV SCH (09:09)
[2018-03-27] MEDS: LACTULOSE 20 GM/30 ML UDCUP PO SCH ×2 (09:09→21:45)
[2018-03-27] MEDS: FLUCONAZOLE 100 MG TABLET PO SCH (12:03)
[2018-03-27] MEDS ORDERED: VANCOMYCIN INJ 1,500 MG in SODIUM CHLORIDE 0.9% 500 ML IV ONE (18:00)
[2018-03-27] MEDS: ENOXAPARIN 40 MG/0.4 ML SYRINGE SUBCUT SCH (21:44)
[2018-03-27] MEDS: LUNESTA 1 MG PO SCH (21:52)
[2018-03-28] MEDS: ALBUTEROL/IPRATROPIUM 3 ML NEB RESP TX SCH ×4 (00:36→19:31)
[2018-03-28] MEDS: cefTAZidime 1,000 MG in SYRINGE 1 EACH IV SCH ×3 (05:01→22:03)
[2018-03-28] MEDS: VANCOMYCIN INJ 1,000 MG in SODIUM CHLORIDE 0.9% 250 ML IV SCH ×2 (05:12→17:38)
[2018-03-28 06:09] LABS: Basophils % 0.2 % (0.0-0.8); Eosinophils # 0.3 10*3/uL (0.0-0.87); Eosinophils % 1.8 % (0.00-10.9); Hematocrit 29.6 VOL% (42.0-52.0); Immature Granulocytes % 0.8 %; Immature Granulocytes Absolute 0.12 #; Lymphocytes # 0.9 10*3/uL (1.4-4.0); Lymphocytes % 5.9 % (21.2-54.2); Mean Corpuscular HGB Conc 33.8 GM/DL (32-36); Mean Corpuscular Hemoglobin 32 PG (27-34); Mean Corpuscular Volume 93.7 FL (87-102); Mean Platelet Volume 10.2 FL (9.6-12.0); Monocytes # 0.9 10*3/uL (0.11-0.8); Monocytes % 5.4 % (1.7-12.7); Neutrophils # 13.6 10*3/uL (1.4-7.4); Neutrophils % 85.9 % (38.7-73.9); Platelet Count 532 T/CUMM (130-400); Red Blood Count 3.16 MC/CUMM (3.8-5.5); Red Cell Distribution Width 14.7 % (9.3-17.3); White Blood Count 15.8 T/CUMM (4-12)
[2018-03-28 06:26] LABS: Albumin 1.7 G/DL (3.4-5.0); Calcium 7.9 MG/DL (8.5-10.1); Osmolality,Calculated 282.4 MOS/KG (273-304); Potassium 3.5 MMOL/L (3.5-5.1); Total Protein 5.4 G/DL (6.4-8.3)
[2018-03-28] MEDS: DORNASE ALFA 2.5 MG/2.5 ML VIAL RESP TX SCH ×2 (07:10→19:31)
[2018-03-28] MEDS: INSULIN REGULAR 100 UNIT/ML SUBCUT SCH ×4 (09:32→20:43)
[2018-03-28] MEDS: BENZONATATE 100 MG CAPSULE PO SCH ×3 (10:23→20:35)
[2018-03-28] MEDS: PANTOPRAZOLE 40 MG TABLET PO SCH (10:23)
[2018-03-28] MEDS: MAGNESIUM OXIDE 400 MG TABLET PO SCH (10:24)
[2018-03-28] MEDS: ASPIRIN CHEW 81 MG TABLET PO SCH (10:24)
[2018-03-28] MEDS: CARVEDILOL 3.125 MG TABLET PO SCH ×2 (10:24→20:35)
[2018-03-28] MEDS: TICAGRELOR 90 MG TABLET PO SCH ×2 (10:24→20:34)
[2018-03-28] MEDS: LOSARTAN 25 MG TABLET PO SCH (10:24)
[2018-03-28] MEDS: FLUCONAZOLE 100 MG TABLET PO SCH (10:24)
[2018-03-28] MEDS: DUTASTERIDE 0.5 MG CAPSULE PO SCH (10:24)
[2018-03-28] MEDS: POTASSIUM CHLORIDE 20 MEQ TABLET PO PRN (10:24)
[2018-03-28] MEDS: LACTULOSE 20 GM/30 ML UDCUP PO SCH ×2 (10:25→20:39)
[2018-03-28] MEDS: FUROSEMIDE 20 MG/2 ML VIAL IV SCH (11:38)
[2018-03-28] MEDS: LUNESTA 1 MG PO SCH (20:33)
[2018-03-28] MEDS: ENOXAPARIN 40 MG/0.4 ML SYRINGE SUBCUT SCH (20:34)
[2018-03-29] MEDS: ALBUTEROL/IPRATROPIUM 3 ML NEB RESP TX SCH ×4 (00:08→19:26)
[2018-03-29 02:04] LABS: Basophils % 0.3 % (0.0-0.8); Eosinophils # 0.3 10*3/uL (0.0-0.87); Eosinophils % 2.6 % (0.00-10.9); Hematocrit 28.2 VOL% (42.0-52.0); Hemoglobin 9.5 GM/DL (14.0-18.0); Immature Granulocytes Absolute 0.11 #; Lymphocytes # 1.2 10*3/uL (1.4-4.0); Lymphocytes % 10.3 % (21.2-54.2); Mean Corpuscular HGB Conc 33.7 GM/DL (32-36); Mean Corpuscular Hemoglobin 32 PG (27-34); Mean Corpuscular Volume 94.9 FL (87-102); Mean Platelet Volume 10.3 FL (9.6-12.0); Monocytes # 0.7 10*3/uL (0.11-0.8); Monocytes % 6.5 % (1.7-12.7); Neutrophils # 9.1 10*3/uL (1.4-7.4); Neutrophils % 79.3 % (38.7-73.9); Platelet Count 572 T/CUMM (130-400); Red Blood Count 2.97 MC/CUMM (3.8-5.5); Red Cell Distribution Width 14.8 % (9.3-17.3); White Blood Count 11.4 T/CUMM (4-12)
[2018-03-29 02:15] LABS: Calcium 8.1 MG/DL (8.5-10.1); Osmolality,Calculated 282.3 MOS/KG (273-304); Potassium 3.8 MMOL/L (3.5-5.1)
[2018-03-29] MEDS: VANCOMYCIN INJ 1,000 MG in SODIUM CHLORIDE 0.9% 250 ML IV SCH ×2 (05:09→18:20)
[2018-03-29] MEDS: cefTAZidime 1,000 MG in SYRINGE 1 EACH IV SCH ×3 (05:10→21:15)
[2018-03-29] MEDS: DORNASE ALFA 2.5 MG/2.5 ML VIAL RESP TX SCH ×2 (07:42→19:26)
[2018-03-29] MEDS: POTASSIUM CHLORIDE 20 MEQ TABLET PO PRN (08:59)
[2018-03-29] MEDS: BENZONATATE 100 MG CAPSULE PO SCH ×3 (08:59→21:12)
[2018-03-29] MEDS: ASPIRIN CHEW 81 MG TABLET PO SCH (09:00)
[2018-03-29] MEDS: FLUCONAZOLE 100 MG TABLET PO SCH (09:00)
[2018-03-29] MEDS: TICAGRELOR 90 MG TABLET PO SCH ×2 (09:00→21:12)
[2018-03-29] MEDS: PANTOPRAZOLE 40 MG TABLET PO SCH (09:00)
[2018-03-29] MEDS: MAGNESIUM OXIDE 400 MG TABLET PO SCH (09:00)
[2018-03-29] MEDS: DUTASTERIDE 0.5 MG CAPSULE PO SCH (09:00)
[2018-03-29] MEDS: FUROSEMIDE 20 MG/2 ML VIAL IV SCH (09:01)
[2018-03-29] MEDS: INSULIN REGULAR 100 UNIT/ML SUBCUT SCH ×4 (09:02→21:13)
[2018-03-29] MEDS: CARVEDILOL 3.125 MG TABLET PO SCH ×2 (09:02→21:12)
[2018-03-29] MEDS: LACTULOSE 20 GM/30 ML UDCUP PO SCH ×3 (09:02→21:15)
[2018-03-29] MEDS: LOSARTAN 25 MG TABLET PO SCH (09:30)
[2018-03-29] MEDS: ACETAMINOPHEN 325 MG TABLET PO PRN (11:40)
[2018-03-29] MEDS: ENOXAPARIN 40 MG/0.4 ML SYRINGE SUBCUT SCH (21:12)
[2018-03-29] MEDS: LUNESTA 1 MG PO SCH (21:13)
[2018-03-30] MEDS: ALBUTEROL/IPRATROPIUM 3 ML NEB RESP TX SCH ×4 (01:40→19:31)
[2018-03-30 04:43] LABS: Basophils % 0.4 % (0.0-0.8); Eosinophils # 0.3 10*3/uL (0.0-0.87); Eosinophils % 2.8 % (0.00-10.9); Hemoglobin 9.1 GM/DL (14.0-18.0); Immature Granulocytes % 0.6 %; Immature Granulocytes Absolute 0.06 #; Lymphocytes # 1.3 10*3/uL (1.4-4.0); Lymphocytes % 12.7 % (21.2-54.2); Mean Corpuscular HGB Conc 33.7 GM/DL (32-36); Mean Corpuscular Hemoglobin 32 PG (27-34); Mean Corpuscular Volume 94.4 FL (87-102); Mean Platelet Volume 10.5 FL (9.6-12.0); Monocytes # 0.8 10*3/uL (0.11-0.8); Monocytes % 7.7 % (1.7-12.7); Neutrophils # 7.5 10*3/uL (1.4-7.4); Neutrophils % 75.8 % (38.7-73.9); Platelet Count 562 T/CUMM (130-400); Red Blood Count 2.86 MC/CUMM (3.8-5.5); Red Cell Distribution Width 14.6 % (9.3-17.3); White Blood Count 9.9 T/CUMM (4-12)
[2018-03-30 05:15] LABS: Osmolality,Calculated 278.5 MOS/KG (273-304); Potassium 3.5 MMOL/L (3.5-5.1)
[2018-03-30] MEDS: POTASSIUM CHLORIDE 20 MEQ TABLET PO PRN ×3 (06:05→11:30)
[2018-03-30] MEDS: cefTAZidime 1,000 MG in SYRINGE 1 EACH IV SCH ×3 (06:05→21:35)
[2018-03-30] MEDS: VANCOMYCIN INJ 1,000 MG in SODIUM CHLORIDE 0.9% 250 ML IV SCH ×3 (06:08→18:22)
[2018-03-30] MEDS: DORNASE ALFA 2.5 MG/2.5 ML VIAL RESP TX SCH ×2 (07:26→19:31)
[2018-03-30] MEDS: BENZONATATE 100 MG CAPSULE PO SCH ×3 (09:22→21:27)
[2018-03-30] MEDS: FLUCONAZOLE 100 MG TABLET PO SCH (09:23)
[2018-03-30] MEDS: TICAGRELOR 90 MG TABLET PO SCH ×2 (09:23→21:27)
[2018-03-30] MEDS: MAGNESIUM OXIDE 400 MG TABLET PO SCH (09:23)
[2018-03-30] MEDS: PANTOPRAZOLE 40 MG TABLET PO SCH (09:23)
[2018-03-30] MEDS: LACTULOSE 20 GM/30 ML UDCUP PO SCH ×2 (09:23→21:35)
[2018-03-30] MEDS: CARVEDILOL 3.125 MG TABLET PO SCH ×2 (09:23→21:27)
[2018-03-30] MEDS: DUTASTERIDE 0.5 MG CAPSULE PO SCH (09:23)
[2018-03-30] MEDS: ASPIRIN CHEW 81 MG TABLET PO SCH (09:24)
[2018-03-30] MEDS: LOSARTAN 25 MG TABLET PO SCH (09:24)
[2018-03-30] MEDS: FUROSEMIDE 20 MG/2 ML VIAL IV SCH (09:24)
[2018-03-30] MEDS: MAGNESIUM SULF RIDER 2 GM in PREMIX 1 EACH IV PRN (09:29)
[2018-03-30] MEDS: INSULIN REGULAR 100 UNIT/ML SUBCUT SCH ×4 (10:47→21:28)
[2018-03-30] MEDS: ONDANSETRON 4 MG/2 ML VIAL IV PRN (13:50)
[2018-03-30] MEDS: ENOXAPARIN 40 MG/0.4 ML SYRINGE SUBCUT SCH (21:27)
[2018-03-30] MEDS: LUNESTA 1 MG PO SCH (21:27)
[2018-03-31] MEDS: ALBUTEROL/IPRATROPIUM 3 ML NEB RESP TX SCH ×4 (01:25→19:41)
[2018-03-31 05:10] LABS: Basophils # 0.1 10*3/uL (0.0-0.2); Basophils % 0.4 % (0.0-0.8); Eosinophils # 0.2 10*3/uL (0.0-0.87); Eosinophils % 1.7 % (0.00-10.9); Hematocrit 27.5 VOL% (42.0-52.0); Hemoglobin 9.2 GM/DL (14.0-18.0); Immature Granulocytes % 0.8 %; Lymphocytes # 1.4 10*3/uL (1.4-4.0); Lymphocytes % 11.1 % (21.2-54.2); Mean Corpuscular HGB Conc 33.5 GM/DL (32-36); Mean Corpuscular Hemoglobin 31 PG (27-34); Mean Corpuscular Volume 93.5 FL (87-102); Monocytes % 8.4 % (1.7-12.7); Neutrophils # 9.5 10*3/uL (1.4-7.4); Neutrophils % 77.6 % (38.7-73.9); Platelet Count 638 T/CUMM (130-400); Red Blood Count 2.94 MC/CUMM (3.8-5.5); Red Cell Distribution Width 14.6 % (9.3-17.3); White Blood Count 12.3 T/CUMM (4-12)
[2018-03-31 05:41] LABS: Calcium 8.6 MG/DL (8.5-10.1); Osmolality,Calculated 273.8 MOS/KG (273-304); Potassium 4.6 MMOL/L (3.5-5.1)
[2018-03-31 05:52] LABS: Folate > 24.0 NG/ML (5.4-24.0); Vitamin B12 1427 PG/ML (211-911)
[2018-03-31] MEDS: cefTAZidime 1,000 MG in SYRINGE 1 EACH IV SCH ×3 (06:40→21:37)
[2018-03-31] MEDS: VANCOMYCIN INJ 1,000 MG in SODIUM CHLORIDE 0.9% 250 ML IV SCH ×2 (06:45→21:34)
[2018-03-31] MEDS: DORNASE ALFA 2.5 MG/2.5 ML VIAL RESP TX SCH ×2 (07:38→19:41)
[2018-03-31] MEDS: MAGNESIUM OXIDE 400 MG TABLET PO SCH (08:45)
[2018-03-31] MEDS: ASPIRIN CHEW 81 MG TABLET PO SCH (08:45)
[2018-03-31] MEDS: TICAGRELOR 90 MG TABLET PO SCH ×2 (08:45→21:44)
[2018-03-31] MEDS: BENZONATATE 100 MG CAPSULE PO SCH ×3 (08:45→21:44)
[2018-03-31] MEDS: FLUCONAZOLE 100 MG TABLET PO SCH (08:45)
[2018-03-31] MEDS: PANTOPRAZOLE 40 MG TABLET PO SCH (08:45)
[2018-03-31] MEDS: DUTASTERIDE 0.5 MG CAPSULE PO SCH (08:45)
[2018-03-31] MEDS: FUROSEMIDE 20 MG/2 ML VIAL IV SCH (08:46)
[2018-03-31] MEDS: LOSARTAN 25 MG TABLET PO SCH (08:46)
[2018-03-31] MEDS: LACTULOSE 20 GM/30 ML UDCUP PO SCH (08:46)
[2018-03-31] MEDS: INSULIN REGULAR 100 UNIT/ML SUBCUT SCH ×4 (08:46→21:43)
[2018-03-31] MEDS: CARVEDILOL 3.125 MG TABLET PO SCH ×2 (08:46→21:44)
[2018-03-31] MEDS ORDERED: PNEUMOCOCCAL VACCINE (13 VALENT) 0.5 ML SYRINGE IM ONE (15:11)
[2018-03-31] MEDS ORDERED: INFLUENZA VIRUS VACCINE 0.5 ML SYRINGE IM ONE (15:11)
[2018-03-31] MEDS: ACETAMINOPHEN 325 MG TABLET PO PRN (16:50)
[2018-03-31] MEDS: ENOXAPARIN 40 MG/0.4 ML SYRINGE SUBCUT SCH (21:44)
[2018-03-31] MEDS: LUNESTA 1 MG PO SCH (21:44)
[2018-04-01] MEDS: ALBUTEROL/IPRATROPIUM 3 ML NEB RESP TX SCH ×2 (00:48→07:22)
[2018-04-01] MEDS: LACTULOSE 20 GM/30 ML UDCUP PO SCH ×2 (04:26→09:32)
[2018-04-01 04:47] LABS: Basophils # 0.1 10*3/uL (0.0-0.2); Basophils % 0.5 % (0.0-0.8); Eosinophils # 0.1 10*3/uL (0.0-0.87); Hematocrit 26.3 VOL% (42.0-52.0); Hemoglobin 8.5 GM/DL (14.0-18.0); Immature Granulocytes % 0.5 %; Immature Granulocytes Absolute 0.06 #; Lymphocytes # 1.6 10*3/uL (1.4-4.0); Lymphocytes % 14.1 % (21.2-54.2); Mean Corpuscular HGB Conc 32.3 GM/DL (32-36); Mean Corpuscular Hemoglobin 32 PG (27-34); Mean Corpuscular Volume 97.4 FL (87-102); Mean Platelet Volume 10.5 FL (9.6-12.0); Monocytes # 1.2 10*3/uL (0.11-0.8); Monocytes % 10.3 % (1.7-12.7); Neutrophils # 8.3 10*3/uL (1.4-7.4); Neutrophils % 73.6 % (38.7-73.9); Platelet Count 556 T/CUMM (130-400); Red Cell Distribution Width 14.5 % (9.3-17.3); White Blood Count 11.2 T/CUMM (4-12)
[2018-04-01 05:22] LABS: Osmolality,Calculated 280.4 MOS/KG (273-304); Potassium 3.7 MMOL/L (3.5-5.1)
[2018-04-01] MEDS: cefTAZidime 1,000 MG in SYRINGE 1 EACH IV SCH ×2 (06:00→16:46)
[2018-04-01] MEDS: DORNASE ALFA 2.5 MG/2.5 ML VIAL RESP TX SCH (07:29)
[2018-04-01] MEDS: INSULIN REGULAR 100 UNIT/ML SUBCUT SCH ×2 (08:11→12:18)
[2018-04-01] MEDS: BENZONATATE 100 MG CAPSULE PO SCH ×2 (09:30→16:47)
[2018-04-01] MEDS: DUTASTERIDE 0.5 MG CAPSULE PO SCH (09:30)
[2018-04-01] MEDS: FLUCONAZOLE 100 MG TABLET PO SCH (09:31)
[2018-04-01] MEDS: POTASSIUM CHLORIDE 20 MEQ TABLET PO PRN (09:31)
[2018-04-01] MEDS: ASPIRIN CHEW 81 MG TABLET PO SCH (09:31)
[2018-04-01] MEDS: LOSARTAN 25 MG TABLET PO SCH (09:31)
[2018-04-01] MEDS: TICAGRELOR 90 MG TABLET PO SCH (09:31)
[2018-04-01] MEDS: PANTOPRAZOLE 40 MG TABLET PO SCH (09:31)
[2018-04-01] MEDS: MAGNESIUM OXIDE 400 MG TABLET PO SCH (09:31)
[2018-04-01] MEDS: FUROSEMIDE 20 MG/2 ML VIAL IV SCH (09:32)
[2018-04-01] MEDS: CARVEDILOL 3.125 MG TABLET PO SCH (09:32)
[2018-04-01] MEDS: VANCOMYCIN INJ 1,000 MG in SODIUM CHLORIDE 0.9% 250 ML IV SCH (09:38)
[2018-04-01] MEDS: ACETAMINOPHEN 325 MG TABLET PO PRN (11:08)
[2018-04-01 16:44] VITALS: BP 103/54
== END 2018-04-01 13:40 | DRG 853 ==
LOC: N.ED 09:47 → N.EDINP 13:39 → SUATTDRO 13:39 → N.CC 14:17 → N.TELEN 03-20 15:24
PROVIDERS: ADMIT Internal Medicine Geriatric Medicine; ATTEND Internal Medicine

== ENCOUNTER 2018-06-27 23:05 | Inpatient (IN) ==
[2018-06-27] MEDS ORDERED: ONDANSETRON 4 MG/2 ML VIAL IV STA (23:36)
[2018-06-27] MEDS ORDERED: DILTIAZEM 25 MG/5 ML VIAL IV ONE (23:36)
[2018-06-27] MEDS ORDERED: DILTIAZEM 50 MG/10 ML VIAL IV STA (23:36)
[2018-06-27 23:45] LABS: Basophils % 0.2 % (0.0-0.8); Eosinophils % 0.1 % (0.00-10.9); Hematocrit 31.4 VOL% (42.0-52.0); Hemoglobin 10.1 GM/DL (14.0-18.0); Immature Granulocytes % 0.7 %; Immature Granulocytes Absolute 0.09 #; Lymphocytes # 1.9 10*3/uL (1.4-4.0); Lymphocytes % 15.3 % (21.2-54.2); Mean Corpuscular HGB Conc 32.2 GM/DL (32-36); Mean Corpuscular Hemoglobin 28 PG (27-34); Mean Corpuscular Volume 87.7 FL (87-102); Mean Platelet Volume 10.8 FL (9.6-12.0); Monocytes # 0.7 10*3/uL (0.11-0.8); Monocytes % 5.8 % (1.7-12.7); Neutrophils # 9.8 10*3/uL (1.4-7.4); Neutrophils % 77.9 % (38.7-73.9); Platelet Count 323 T/CUMM (130-400); Red Blood Count 3.58 MC/CUMM (3.8-5.5); Red Cell Distribution Width 14.4 % (9.3-17.3); White Blood Count 12.6 T/CUMM (4-12)
[2018-06-27 23:58] LABS: INR 1.2; PT Patient Result 12.5 SECS
[2018-06-28 00:01] LABS: Albumin 2.7 G/DL (3.4-5.0); Bilirubin,Total 0.5 MG/DL (0.2-1.0); Calcium 8.8 MG/DL (8.5-10.1); Potassium 5.6 MMOL/L (3.5-5.1); Total Protein 6.8 G/DL (6.4-8.3)
[2018-06-28] MEDS ORDERED: DILTIAZEM 100 MG VIAL.ADD IV ONE (00:02)
[2018-06-28] MEDS ORDERED: MAGNESIUM SULF RIDER 2 GM in PREMIX 1 EACH IV STA (00:06)
[2018-06-28 00:07] LABS: INR 1.2; PT Patient Result 12.5 SECS
[2018-06-28] MEDS: DILTIAZEM INJ 100 MG in SODIUM CHLORIDE 0.9% 100 ML IV SCH (00:09)
[2018-06-28] MEDS ORDERED: FUROSEMIDE 20 MG/2 ML VIAL IV ONE (00:42)
[2018-06-28] MEDS ORDERED: DEXTROSE 50% 25 GM/50 ML SYRINGE IV PRN (00:43)
[2018-06-28] MEDS ORDERED: SODIUM CHLORIDE 0.9% 1,000 ML IV SCH (00:43)
[2018-06-28] MEDS ORDERED: MORPHINE 4 MG/1 ML VIAL IV PRN (00:43)
[2018-06-28] MEDS ORDERED: MAGNESIUM SULF RIDER 2 GM in PREMIX 1 EACH IV PRN (00:43)
[2018-06-28] MEDS ORDERED: GLUCAGON 1 MG VIAL IM PRN (00:43)
[2018-06-28] MEDS ORDERED: ONDANSETRON 4 MG/2 ML VIAL IV PRN (00:43)
[2018-06-28] MEDS ORDERED: MAGNESIUM SULF RIDER 4 GM in PREMIX 1 EACH IV PRN (00:43)
[2018-06-28 00:46] LABS: Partial Thromboplastin Time < 21.0 SECS (0-40)
[2018-06-28] MEDS: ALBUTEROL/IPRATROPIUM 3 ML NEB RESP TX SCH ×6 (03:44→23:12)
[2018-06-28] MEDS ORDERED: DIGOXIN 0.5 MG/2 ML AMP IV ONE ×3 (05:30→12:00)
[2018-06-28 05:50] LABS: Basophils % 0.1 % (0.0-0.8); Hematocrit 30.9 VOL% (42.0-52.0); Hemoglobin 9.9 GM/DL (14.0-18.0); Immature Granulocytes % 0.5 %; Immature Granulocytes Absolute 0.05 #; Lymphocytes # 1.4 10*3/uL (1.4-4.0); Lymphocytes % 15.3 % (21.2-54.2); Mean Corpuscular Hemoglobin 28 PG (27-34); Mean Corpuscular Volume 87.5 FL (87-102); Mean Platelet Volume 11.2 FL (9.6-12.0); Monocytes # 0.7 10*3/uL (0.11-0.8); Monocytes % 7.4 % (1.7-12.7); Neutrophils # 7.2 10*3/uL (1.4-7.4); Neutrophils % 76.7 % (38.7-73.9); Platelet Count 298 T/CUMM (130-400); Red Blood Count 3.53 MC/CUMM (3.8-5.5); Red Cell Distribution Width 14.4 % (9.3-17.3); White Blood Count 9.4 T/CUMM (4-12)
[2018-06-28] MEDS: INSULIN REGULAR 100 UNIT/ML SUBCUT SCH ×4 (05:56→23:40)
[2018-06-28 06:05] LABS: Albumin 2.6 G/DL (3.4-5.0); Bilirubin,Total 0.6 MG/DL (0.2-1.0); Calcium 8.9 MG/DL (8.5-10.1); Potassium 4.4 MMOL/L (3.5-5.1); Risk Ratio 3.05; Total Protein 6.4 G/DL (6.4-8.3); VLDL CHOLESTEROL 23.2 MG/DL
[2018-06-28 06:13] LABS: Basophils % 0.2 % (0.0-0.8); Hematocrit 30.5 VOL% (42.0-52.0); Hemoglobin 9.7 GM/DL (14.0-18.0); Immature Granulocytes % 0.6 %; Immature Granulocytes Absolute 0.06 #; Lymphocytes # 1.7 10*3/uL (1.4-4.0); Lymphocytes % 16.4 % (21.2-54.2); Mean Corpuscular HGB Conc 31.8 GM/DL (32-36); Mean Corpuscular Hemoglobin 28 PG (27-34); Mean Corpuscular Volume 86.6 FL (87-102); Mean Platelet Volume 10.9 FL (9.6-12.0); Monocytes # 0.8 10*3/uL (0.11-0.8); Monocytes % 7.8 % (1.7-12.7); Neutrophils # 7.7 10*3/uL (1.4-7.4); Platelet Count 296 T/CUMM (130-400); Red Blood Count 3.52 MC/CUMM (3.8-5.5); Red Cell Distribution Width 14.5 % (9.3-17.3); White Blood Count 10.2 T/CUMM (4-12)
[2018-06-28 06:13] LABS: Albumin 2.5 G/DL (3.4-5.0); Osmolality,Calculated 284.7 MOS/KG (273-304); Potassium 4.5 MMOL/L (3.5-5.1); Total Protein 6.4 G/DL (6.4-8.3)
[2018-06-28] MEDS ORDERED: CARVEDILOL 3.125 MG TABLET PO SCH (08:00)
[2018-06-28 08:32] LABS: Apearance,Urine CLEAR (Clear); Bilirubin,Urine Negative (Negative); Blood, Urine Negative (Negative); Glucose,Urine (UA) Negative (Negative); Hyaline Casts,Urine 13 /LPF (0-3); Ketones,Urine Negative (Negative); Mucus,Urine Occasional /LPF (Occasional); Nitrite,Urine Negative (Negative); Protein,Urine Negative; RBC,Urine <1 /HPF (0-4); Urine Color Yellow (Yellow); Urine Urobilinogen < 2.0 EU/DL (0.2-1.0)
[2018-06-28] MEDS: DUTASTERIDE 0.5 MG CAPSULE PO SCH (08:51)
[2018-06-28] MEDS: PARoxetine 10 MG TABLET PO SCH (08:51)
[2018-06-28] MEDS: SIMVASTATIN 80 MG TABLET PO SCH (08:51)
[2018-06-28] MEDS: MULTIVITAMIN (CENTRUM) TABLET PO SCH (08:51)
[2018-06-28] MEDS: TICAGRELOR 90 MG TABLET PO SCH ×2 (08:52→20:53)
[2018-06-28] MEDS: ASPIRIN EC 81 MG TABLET PO SCH (08:52)
[2018-06-28] MEDS: PANTOPRAZOLE 40 MG TABLET PO SCH (08:54)
[2018-06-28] MEDS ORDERED: NON-FORMULARY MEDICATION (Esomeprazole Magnesium [Nexium] 40 MG) PO PRN (11:32)
[2018-06-28] MEDS ORDERED: BENZONATATE 100 MG CAPSULE PO PRN (11:32)
[2018-06-28] MEDS ORDERED: DIGOXIN 0.25 MG TABLET PO ONE (13:10)
[2018-06-28] MEDS: BISOPROLOL 5 MG TABLET PO SCH ×2 (15:42→20:54)
[2018-06-28] MEDS: FUROSEMIDE 20 MG TABLET PO SCH (17:13)
[2018-06-28] MEDS: ZALEPLON 5 MG CAPSULE PO SCH (20:54)
[2018-06-29] MEDS: DILTIAZEM INJ 100 MG in SODIUM CHLORIDE 0.9% 100 ML IV SCH (00:35)
[2018-06-29] MEDS: ALBUTEROL/IPRATROPIUM 3 ML NEB RESP TX SCH ×5 (02:44→19:48)
[2018-06-29] MEDS: INSULIN REGULAR 100 UNIT/ML SUBCUT SCH ×5 (05:58→21:26)
[2018-06-29 06:24] LABS: Basophils % 0.2 % (0.0-0.8); Eosinophils % 0.1 % (0.00-10.9); Hematocrit 31.1 VOL% (42.0-52.0); Immature Granulocytes % 0.5 %; Immature Granulocytes Absolute 0.05 #; Lymphocytes # 1.6 10*3/uL (1.4-4.0); Lymphocytes % 16.7 % (21.2-54.2); Mean Corpuscular HGB Conc 32.2 GM/DL (32-36); Mean Corpuscular Hemoglobin 28 PG (27-34); Mean Corpuscular Volume 86.9 FL (87-102); Monocytes # 0.8 10*3/uL (0.11-0.8); Monocytes % 8.7 % (1.7-12.7); Neutrophils # 6.8 10*3/uL (1.4-7.4); Neutrophils % 73.8 % (38.7-73.9); Platelet Count 281 T/CUMM (130-400); Red Blood Count 3.58 MC/CUMM (3.8-5.5); Red Cell Distribution Width 14.5 % (9.3-17.3); White Blood Count 9.3 T/CUMM (4-12)
[2018-06-29 06:44] LABS: Calcium 8.3 MG/DL (8.5-10.1); Osmolality,Calculated 277.8 MOS/KG (273-304); Potassium 3.3 MMOL/L (3.5-5.1)
[2018-06-29] MEDS: SIMVASTATIN 80 MG TABLET PO SCH (09:41)
[2018-06-29] MEDS: POTASSIUM CHLORIDE 20 MEQ TABLET PO PRN (09:41)
[2018-06-29] MEDS: PARoxetine 10 MG TABLET PO SCH (09:41)
[2018-06-29] MEDS: DUTASTERIDE 0.5 MG CAPSULE PO SCH (09:41)
[2018-06-29] MEDS: ASPIRIN EC 81 MG TABLET PO SCH (09:42)
[2018-06-29] MEDS: TICAGRELOR 90 MG TABLET PO SCH ×2 (09:42→21:24)
[2018-06-29] MEDS: PANTOPRAZOLE 40 MG TABLET PO SCH (09:42)
[2018-06-29] MEDS: FUROSEMIDE 20 MG TABLET PO SCH (09:42)
[2018-06-29] MEDS: BISOPROLOL 5 MG TABLET PO SCH ×2 (09:42→21:38)
[2018-06-29] MEDS: MULTIVITAMIN (CENTRUM) TABLET PO SCH (09:42)
[2018-06-29] MEDS: DIGOXIN 0.125 MG TABLET PO SCH (12:48)
[2018-06-29] MEDS ORDERED: POTASSIUM CHLORIDE 20 MEQ TABLET PO ONE (15:17)
[2018-06-29] MEDS: FUROSEMIDE 20 MG/2 ML VIAL IV SCH (15:39)
[2018-06-29] MEDS: LEVOFLOXACIN 750 MG TABLET PO SCH (15:40)
[2018-06-29] MEDS ORDERED: dilTIAZem Drip 125 MG/125 ML PREMIX IV SCH (16:00)
[2018-06-29] MEDS: ENOXAPARIN 30 MG/0.3 ML SYRINGE SUBCUT SCH (16:36)
[2018-06-29 16:39] LABS: Albumin 2.5 G/DL (3.4-5.0); Bilirubin,Direct 0.23 MG/DL (0.0-0.20); Bilirubin,Indirect 0.5 MG/DL (0.0-1.0); Bilirubin,Total 0.7 MG/DL (0.2-1.0); Total Protein 6.6 G/DL (6.4-8.3)
[2018-06-29 16:40] LABS: Lactic Acid 2.1 MMOL/L (0.4-2.0)
[2018-06-29] MEDS: ZALEPLON 5 MG CAPSULE PO SCH (23:29)
[2018-06-30] MEDS: ALBUTEROL/IPRATROPIUM 3 ML NEB RESP TX SCH ×6 (00:30→19:23)
[2018-06-30] MEDS: INSULIN REGULAR 100 UNIT/ML SUBCUT SCH ×5 (01:35→19:08)
[2018-06-30 05:50] LABS: Basophils % 0.2 % (0.0-0.8); Eosinophils # 0.1 10*3/uL (0.0-0.87); Eosinophils % 0.7 % (0.00-10.9); Hematocrit 30.5 VOL% (42.0-52.0); Hemoglobin 9.9 GM/DL (14.0-18.0); Immature Granulocytes % 0.4 %; Immature Granulocytes Absolute 0.04 #; Lymphocytes # 2.1 10*3/uL (1.4-4.0); Lymphocytes % 22.5 % (21.2-54.2); Mean Corpuscular HGB Conc 32.5 GM/DL (32-36); Mean Corpuscular Hemoglobin 28 PG (27-34); Mean Corpuscular Volume 86.2 FL (87-102); Mean Platelet Volume 10.9 FL (9.6-12.0); Monocytes # 0.7 10*3/uL (0.11-0.8); Neutrophils # 6.2 10*3/uL (1.4-7.4); Neutrophils % 68.2 % (38.7-73.9); Platelet Count 275 T/CUMM (130-400); Red Blood Count 3.54 MC/CUMM (3.8-5.5); Red Cell Distribution Width 14.2 % (9.3-17.3); White Blood Count 9.1 T/CUMM (4-12)
[2018-06-30 06:40] LABS: Osmolality,Calculated 274.8 MOS/KG (273-304); Potassium 3.3 MMOL/L (3.5-5.1)
[2018-06-30] MEDS: FUROSEMIDE 20 MG/2 ML VIAL IV SCH ×2 (09:07→15:27)
[2018-06-30] MEDS: ASPIRIN EC 81 MG TABLET PO SCH (09:08)
[2018-06-30] MEDS: POTASSIUM CHLORIDE 20 MEQ TABLET PO PRN (09:08)
[2018-06-30] MEDS: DUTASTERIDE 0.5 MG CAPSULE PO SCH (09:09)
[2018-06-30] MEDS: PARoxetine 10 MG TABLET PO SCH (09:09)
[2018-06-30] MEDS: MULTIVITAMIN (CENTRUM) TABLET PO SCH (09:09)
[2018-06-30] MEDS: PANTOPRAZOLE 40 MG TABLET PO SCH (09:09)
[2018-06-30] MEDS: TICAGRELOR 90 MG TABLET PO SCH ×2 (09:09→21:22)
[2018-06-30] MEDS: BISOPROLOL 5 MG TABLET PO SCH (09:15)
[2018-06-30] MEDS: DIGOXIN 0.125 MG TABLET PO SCH (12:51)
[2018-06-30] MEDS: SIMVASTATIN 80 MG TABLET PO SCH (12:51)
[2018-06-30] MEDS ORDERED: LACTULOSE 20 GM/30 ML UDCUP PO PRN (14:21)
[2018-06-30] MEDS: LEVOFLOXACIN 750 MG TABLET PO SCH (15:28)
[2018-06-30] MEDS: ENOXAPARIN 30 MG/0.3 ML SYRINGE SUBCUT SCH (16:33)
[2018-06-30] MEDS ORDERED: SIMVASTATIN 20 MG TABLET PO SCH (17:40)
[2018-06-30] MEDS ORDERED: SODIUM CHLORIDE 0.9% 1,000 ML IV SCH (18:00)
[2018-06-30] MEDS: ZALEPLON 5 MG CAPSULE PO SCH (21:22)
[2018-06-30] MEDS: ROSUVASTATIN 20 MG TABLET PO SCH (21:22)
[2018-07-01] MEDS: ALBUTEROL/IPRATROPIUM 3 ML NEB RESP TX SCH ×6 (00:59→20:46)
[2018-07-01] MEDS: INSULIN REGULAR 100 UNIT/ML SUBCUT SCH ×4 (01:29→19:22)
[2018-07-01 05:26] LABS: Basophils % 0.4 % (0.0-0.8); Eosinophils # 0.2 10*3/uL (0.0-0.87); Eosinophils % 2.2 % (0.00-10.9); Hematocrit 30.4 VOL% (42.0-52.0); Hemoglobin 9.9 GM/DL (14.0-18.0); Immature Granulocytes % 0.4 %; Immature Granulocytes Absolute 0.03 #; Lymphocytes # 1.6 10*3/uL (1.4-4.0); Lymphocytes % 21.4 % (21.2-54.2); Mean Corpuscular HGB Conc 32.6 GM/DL (32-36); Mean Corpuscular Hemoglobin 28 PG (27-34); Mean Corpuscular Volume 86.9 FL (87-102); Mean Platelet Volume 11.2 FL (9.6-12.0); Monocytes # 0.4 10*3/uL (0.11-0.8); Monocytes % 5.9 % (1.7-12.7); Neutrophils # 5.1 10*3/uL (1.4-7.4); Neutrophils % 69.7 % (38.7-73.9); Platelet Count 293 T/CUMM (130-400); Red Cell Distribution Width 14.5 % (9.3-17.3); White Blood Count 7.3 T/CUMM (4-12)
[2018-07-01 06:15] LABS: Calcium 8.1 MG/DL (8.5-10.1); Osmolality,Calculated 279.5 MOS/KG (273-304); Potassium 3.5 MMOL/L (3.5-5.1)
[2018-07-01] MEDS: DUTASTERIDE 0.5 MG CAPSULE PO SCH (09:29)
[2018-07-01] MEDS: MULTIVITAMIN (CENTRUM) TABLET PO SCH (09:30)
[2018-07-01] MEDS: PARoxetine 10 MG TABLET PO SCH (09:30)
[2018-07-01] MEDS: ASPIRIN EC 81 MG TABLET PO SCH (09:30)
[2018-07-01] MEDS: TICAGRELOR 90 MG TABLET PO SCH ×2 (09:30→21:38)
[2018-07-01] MEDS: PANTOPRAZOLE 40 MG TABLET PO SCH (09:30)
[2018-07-01] MEDS: DIGOXIN 0.125 MG TABLET PO SCH (12:51)
[2018-07-01] MEDS: SACUBITRIL/VALSARTAN 49-51 MG TABLET PO SCH ×2 (15:43→21:39)
[2018-07-01] MEDS: LEVOFLOXACIN 750 MG TABLET PO SCH (15:44)
[2018-07-01] MEDS: ENOXAPARIN 30 MG/0.3 ML SYRINGE SUBCUT SCH (15:44)
[2018-07-01] MEDS: ROSUVASTATIN 20 MG TABLET PO SCH (21:38)
[2018-07-01] MEDS: BISOPROLOL 5 MG TABLET PO SCH (21:38)
[2018-07-01] MEDS: LUNESTA 3 MG PO PRN (21:38)
[2018-07-01] MEDS: ZALEPLON 5 MG CAPSULE PO SCH (21:39)
[2018-07-02] MEDS: ALBUTEROL/IPRATROPIUM 3 ML NEB RESP TX SCH ×7 (00:20→23:37)
[2018-07-02] MEDS: INSULIN REGULAR 100 UNIT/ML SUBCUT SCH ×3 (00:30→23:30)
[2018-07-02 05:45] LABS: Basophils % 0.4 % (0.0-0.8); Eosinophils # 0.2 10*3/uL (0.0-0.87); Eosinophils % 2.6 % (0.00-10.9); Hemoglobin 10.4 GM/DL (14.0-18.0); Immature Granulocytes % 0.7 %; Immature Granulocytes Absolute 0.06 #; Lymphocytes # 1.4 10*3/uL (1.4-4.0); Lymphocytes % 17.7 % (21.2-54.2); Mean Corpuscular HGB Conc 32.5 GM/DL (32-36); Mean Corpuscular Hemoglobin 28 PG (27-34); Mean Corpuscular Volume 85.6 FL (87-102); Mean Platelet Volume 10.4 FL (9.6-12.0); Monocytes # 0.7 10*3/uL (0.11-0.8); Monocytes % 8.8 % (1.7-12.7); Neutrophils # 5.6 10*3/uL (1.4-7.4); Neutrophils % 69.8 % (38.7-73.9); Platelet Count 345 T/CUMM (130-400); Red Blood Count 3.74 MC/CUMM (3.8-5.5); Red Cell Distribution Width 14.5 % (9.3-17.3); White Blood Count 8.1 T/CUMM (4-12)
[2018-07-02 06:31] LABS: Bilirubin,Total 0.8 MG/DL (0.2-1.0); Calcium 8.1 MG/DL (8.5-10.1); Osmolality,Calculated 278.7 MOS/KG (273-304); Potassium 3.4 MMOL/L (3.5-5.1); Total Protein 5.6 G/DL (6.4-8.3)
[2018-07-02] MEDS: TICAGRELOR 90 MG TABLET PO SCH ×2 (08:52→20:46)
[2018-07-02] MEDS: MULTIVITAMIN (CENTRUM) TABLET PO SCH (08:52)
[2018-07-02] MEDS: PARoxetine 10 MG TABLET PO SCH (08:52)
[2018-07-02] MEDS: ASPIRIN EC 81 MG TABLET PO SCH (08:52)
[2018-07-02] MEDS: DUTASTERIDE 0.5 MG CAPSULE PO SCH (08:53)
[2018-07-02] MEDS: FUROSEMIDE 20 MG TABLET PO SCH (08:53)
[2018-07-02] MEDS: SACUBITRIL/VALSARTAN 49-51 MG TABLET PO SCH (08:53)
[2018-07-02] MEDS: BISOPROLOL 5 MG TABLET PO SCH ×2 (08:53→20:46)
[2018-07-02] MEDS: PANTOPRAZOLE 40 MG TABLET PO SCH (08:54)
[2018-07-02] MEDS: MEROPENEM 1,000 MG in SODIUM CHLORIDE 0.9% 100 ML IV SCH ×2 (10:48→16:44)
[2018-07-02] MEDS: DIGOXIN 0.125 MG TABLET PO SCH (12:53)
[2018-07-02 15:05] LABS: Hepatitis A Ab IgM Quant 0.84 Index; Hepatitis B Core IgM Quant < 0.05 Index; Hepatitis B Core IgM Result Negative (Negative); Hepatitis B Surface Ag Quant < 0.10 Index; Hepatitis B Surface Ag Result Negative (Negative); Hepatitis C Virus Ab Quant 0.05 Index; Hepatitis C Virus Ab Result Negative (Negative)
[2018-07-02] MEDS: ENOXAPARIN 30 MG/0.3 ML SYRINGE SUBCUT SCH (15:20)
[2018-07-02] MEDS: LUNESTA 3 MG PO PRN (20:46)
[2018-07-02] MEDS: ZALEPLON 5 MG CAPSULE PO SCH (20:47)
[2018-07-03] MEDS: INSULIN REGULAR 100 UNIT/ML SUBCUT SCH ×4 (02:34→18:48)
[2018-07-03] MEDS: MEROPENEM 1,000 MG in SODIUM CHLORIDE 0.9% 100 ML IV SCH ×2 (03:45→14:04)
[2018-07-03] MEDS: ALBUTEROL/IPRATROPIUM 3 ML NEB RESP TX SCH ×7 (03:58→23:22)
[2018-07-03 05:44] LABS: Basophils % 0.3 % (0.0-0.8); Eosinophils # 0.5 10*3/uL (0.0-0.87); Eosinophils % 5.8 % (0.00-10.9); Hematocrit 31.9 VOL% (42.0-52.0); Hemoglobin 10.2 GM/DL (14.0-18.0); Immature Granulocytes % 0.8 %; Immature Granulocytes Absolute 0.07 #; Lymphocytes # 1.8 10*3/uL (1.4-4.0); Lymphocytes % 20.4 % (21.2-54.2); Mean Corpuscular Hemoglobin 28 PG (27-34); Mean Platelet Volume 10.6 FL (9.6-12.0); Monocytes # 0.9 10*3/uL (0.11-0.8); Monocytes % 10.2 % (1.7-12.7); Neutrophils # 5.4 10*3/uL (1.4-7.4); Neutrophils % 62.5 % (38.7-73.9); Platelet Count 347 T/CUMM (130-400); Red Blood Count 3.71 MC/CUMM (3.8-5.5); Red Cell Distribution Width 14.6 % (9.3-17.3); White Blood Count 8.7 T/CUMM (4-12)
[2018-07-03 06:09] LABS: Calcium 8.3 MG/DL (8.5-10.1); Osmolality,Calculated 282.3 MOS/KG (273-304); Potassium 3.2 MMOL/L (3.5-5.1)
[2018-07-03] MEDS: MAGNESIUM CHLORIDE 64 MG TABLET PO SCH ×2 (09:36→21:54)
[2018-07-03] MEDS: BISOPROLOL 5 MG TABLET PO SCH ×2 (09:36→21:53)
[2018-07-03] MEDS: MULTIVITAMIN (CENTRUM) TABLET PO SCH (09:36)
[2018-07-03] MEDS: ASCORBIC ACID 500 MG TABLET PO SCH ×2 (09:36→21:54)
[2018-07-03] MEDS: PARoxetine 10 MG TABLET PO SCH (09:37)
[2018-07-03] MEDS: PANTOPRAZOLE 40 MG TABLET PO SCH (09:37)
[2018-07-03] MEDS: ASPIRIN EC 81 MG TABLET PO SCH (09:37)
[2018-07-03] MEDS: POTASSIUM CHLORIDE 20 MEQ TABLET PO SCH (09:37)
[2018-07-03] MEDS: TICAGRELOR 90 MG TABLET PO SCH ×2 (09:37→21:53)
[2018-07-03] MEDS: FUROSEMIDE 20 MG TABLET PO SCH (09:37)
[2018-07-03] MEDS: DUTASTERIDE 0.5 MG CAPSULE PO SCH (09:37)
[2018-07-03 09:52] LABS: Albumin 2.2 G/DL (3.4-5.0); Bilirubin,Direct 0.17 MG/DL (0.0-0.20); Bilirubin,Indirect 0.3 MG/DL (0.0-1.0); Bilirubin,Total 0.5 MG/DL (0.2-1.0); Total Protein 5.8 G/DL (6.4-8.3)
[2018-07-03] MEDS: POTASSIUM CHLORIDE 20 MEQ TABLET PO PRN ×3 (11:43→15:57)
[2018-07-03] MEDS: DIGOXIN 0.125 MG TABLET PO SCH (13:50)
[2018-07-03] MEDS: LEVOFLOXACIN 500 MG TABLET PO SCH (13:50)
[2018-07-03] MEDS: SPIRONOLACTONE 25 MG TABLET PO SCH (13:51)
[2018-07-03] MEDS ORDERED: MAGNESIUM SULF RIDER 2 GM in PREMIX 1 EACH IV ONE (14:00)
[2018-07-03] MEDS: ENOXAPARIN 30 MG/0.3 ML SYRINGE SUBCUT SCH (15:58)
[2018-07-03] MEDS ORDERED: SODIUM CHLORIDE 0.65% NASAL SPRAY 45 ML BOTTLE BOTH NARES PRN (18:23)
[2018-07-03] MEDS: ZALEPLON 5 MG CAPSULE PO SCH (21:53)
[2018-07-03] MEDS: LUNESTA 3 MG PO PRN (21:53)
[2018-07-04] MEDS: INSULIN REGULAR 100 UNIT/ML SUBCUT SCH ×2 (00:42→06:34)
[2018-07-04] MEDS: ALBUTEROL/IPRATROPIUM 3 ML NEB RESP TX SCH ×2 (02:52→07:14)
[2018-07-04 05:28] LABS: Basophils % 0.5 % (0.0-0.8); Eosinophils # 0.2 10*3/uL (0.0-0.87); Eosinophils % 3.1 % (0.00-10.9); Hematocrit 30.4 VOL% (42.0-52.0); Hemoglobin 9.8 GM/DL (14.0-18.0); Immature Granulocytes % 0.5 %; Immature Granulocytes Absolute 0.04 #; Lymphocytes % 26.1 % (21.2-54.2); Mean Corpuscular HGB Conc 32.2 GM/DL (32-36); Mean Corpuscular Hemoglobin 28 PG (27-34); Mean Corpuscular Volume 86.4 FL (87-102); Mean Platelet Volume 10.8 FL (9.6-12.0); Monocytes # 0.8 10*3/uL (0.11-0.8); Monocytes % 10.6 % (1.7-12.7); Neutrophils # 4.6 10*3/uL (1.4-7.4); Neutrophils % 59.2 % (38.7-73.9); Platelet Count 360 T/CUMM (130-400); Red Blood Count 3.52 MC/CUMM (3.8-5.5); Red Cell Distribution Width 14.8 % (9.3-17.3); White Blood Count 7.8 T/CUMM (4-12)
[2018-07-04 05:53] LABS: Calcium 8.7 MG/DL (8.5-10.1); Osmolality,Calculated 278.4 MOS/KG (273-304); Potassium 3.8 MMOL/L (3.5-5.1)
[2018-07-04 05:56] LABS: Albumin 2.2 G/DL (3.4-5.0); Bilirubin,Direct 0.17 MG/DL (0.0-0.20); Bilirubin,Indirect 0.6 MG/DL (0.0-1.0); Bilirubin,Total 0.8 MG/DL (0.2-1.0); Total Protein 5.7 G/DL (6.4-8.3)
[2018-07-04 05:57] LABS: Albumin 2.2 G/DL (3.4-5.0); Bilirubin,Total 1.2 MG/DL (0.2-1.0); Calcium 8.7 MG/DL (8.5-10.1); Osmolality,Calculated 277.5 MOS/KG (273-304); Potassium 3.8 MMOL/L (3.5-5.1); Total Protein 5.7 G/DL (6.4-8.3)
[2018-07-04 07:59] VITALS: BP 102/54
[2018-07-04] MEDS: PARoxetine 10 MG TABLET PO SCH (08:59)
[2018-07-04] MEDS: PANTOPRAZOLE 40 MG TABLET PO SCH (08:59)
[2018-07-04] MEDS: MAGNESIUM CHLORIDE 64 MG TABLET PO SCH (08:59)
[2018-07-04] MEDS: TICAGRELOR 90 MG TABLET PO SCH (08:59)
[2018-07-04] MEDS: FUROSEMIDE 20 MG TABLET PO SCH (09:00)
[2018-07-04] MEDS: DUTASTERIDE 0.5 MG CAPSULE PO SCH (09:00)
[2018-07-04] MEDS: MULTIVITAMIN (CENTRUM) TABLET PO SCH (09:00)
[2018-07-04] MEDS: ASPIRIN EC 81 MG TABLET PO SCH (09:00)
[2018-07-04] MEDS: BISOPROLOL 5 MG TABLET PO SCH (09:00)
[2018-07-04] MEDS: ASCORBIC ACID 500 MG TABLET PO SCH (09:00)
[2018-07-04] MEDS: LEVOFLOXACIN 500 MG TABLET PO SCH (09:00)
[2018-07-04] MEDS: SPIRONOLACTONE 25 MG TABLET PO SCH (09:00)
[2018-07-04] MEDS: POTASSIUM CHLORIDE 20 MEQ TABLET PO SCH (09:01)
== END 2018-07-04 11:42 | disposition home health service (06) | DRG 308 ==
LOC: EDUNIT# → EDBD → EDSEX → N.ED 23:05 → N.EDINP 06-28 00:20 → N.CC 06-28 00:39 → UNDODISIN 06-28 12:03 → N.TELEN 06-28 18:06
PROVIDERS: ADMIT Internal Medicine Interventional Cardiology; ATTEND Internal Medicine Interventional Cardiology

== ENCOUNTER 2020-04-07 06:42 | Inpatient (IN) ==
[2020-04-01 14:15] LABS: Basophils # 0.1 10*3/uL (0.0-0.2); Basophils % 0.6 % (0.0-0.8); Eosinophils # 0.1 10*3/uL (0.0-0.87); Eosinophils % 0.6 % (0.00-10.9); Hematocrit 39.1 VOL% (42.0-52.0); Hemoglobin 12.7 GM/DL (14.0-18.0); Immature Granulocytes % 0.4 %; Immature Granulocytes Absolute 0.03 #; Lymphocytes # 2.8 10*3/uL (1.4-4.0); Lymphocytes % 33.8 % (21.2-54.2); Mean Corpuscular HGB Conc 32.5 GM/DL (32-36); Mean Corpuscular Volume 98.7 FL (87-102); Mean Platelet Volume 10.3 FL (9.6-12.0); Monocytes % 7.9 % (1.7-12.7); Neutrophils % 56.7 % (38.7-73.9); Platelet Count 234 T/CUMM (130-400); Red Blood Count 3.96 MC/CUMM (3.8-5.5); Red Cell Distribution Width 13.6 % (9.3-17.3); White Blood Count 8.2 T/CUMM (4-12)
[2020-04-01 14:25] LABS: Partial Thromboplastin Time 28.6 SECS (23.9-33.8)
[2020-04-01 15:01] LABS: Albumin 3.4 G/DL (3.4-5.0); Bilirubin,Total 0.4 MG/DL (0.2-1.0); Calcium 9.9 MG/DL (8.5-10.1); Osmolality,Calculated 274.8 MOS/KG (273-304); Total Protein 7.4 G/DL (6.4-8.3)
[~2020-04-07 06:42] MED LIST: LACTATED RINGERS 1,000 ML IV SCH; NITROGLYCERIN DRIP 50 MG/250 ML BOTTLE IV ONE; PHENYLEPHRINE DRIP 20 MG/250 ML PREMIX IV ONE; ceFAZolin 1,000 MG VIAL ONE; ceFAZolin 1,000 MG in SYRINGE 1 EACH IV ONE
[2020-04-07] MEDS ORDERED: HEPARIN/NACL 0.9% 2 UNITS/ML 500 ML IV ONE (06:45)
[2020-04-07] MEDS ORDERED: HEPARIN 5,000 UNIT/1 ML VIAL ONE (08:12)
[2020-04-07] MEDS ORDERED: LIDOCAINE 1% 20 ML VIAL ONE (08:12)
[2020-04-07] MEDS ORDERED: GLUCAGON 1 MG VIAL IM PRN (10:55)
[2020-04-07] MEDS ORDERED: DEXTROSE 50% 25 GM/50 ML VIAL IV PRN (10:55)
[2020-04-07] MEDS ORDERED: PROMETHAZINE 25 MG/1 ML VIAL IM PRN (10:55)
[2020-04-07] MEDS ORDERED: oxyCODONE/ACETAMINOPHEN 5-325 MG TABLET PO PRN ×2 (10:55)
[2020-04-07] MEDS ORDERED: NALOXONE 0.4 MG/ML VIAL IV PRN (10:55)
[2020-04-07] MEDS ORDERED: ONDANSETRON 4 MG/2 ML VIAL IV PRN (10:55)
[2020-04-07] MEDS ORDERED: HYDROmorphone 2 MG/1 ML VIAL IV PRN ×2 (10:55)
[2020-04-07] MEDS ORDERED: NITROGLYCERIN SL 0.4 MG TABLET SL PRN (10:57)
[2020-04-07] MEDS ORDERED: ONDANSETRON 4 MG/2 ML VIAL ONE (11:11)
[2020-04-07] MEDS ORDERED: ROPIVACAINE 0.5% 30 ML VIAL ONE (11:11)
[2020-04-07] MEDS ORDERED: HEPARIN 10,000 UNIT/10 ML VIAL ONE (11:11)
[2020-04-07] MEDS ORDERED: LIDOCAINE 2% 5 ML VIAL ONE (11:11)
[2020-04-07] MEDS ORDERED: ETOMIDATE 40 MG/20 ML VIAL IV ONE (11:11)
[2020-04-07] MEDS ORDERED: fentaNYL 100 MCG/2 ML VIAL ONE (11:11)
[2020-04-07] MEDS ORDERED: ePHEDrine 50 MG/ML VIAL ONE (11:11)
[2020-04-07] MEDS ORDERED: SEVOFLURANE 1 UNIT/15 MINUTE INH ONE (11:11)
[2020-04-07] MEDS ORDERED: ROCURONIUM 100 MG/10 ML VIAL IV ONE (11:12)
[2020-04-07] MEDS ORDERED: PROTAMINE SULFATE 50 MG/5 ML VIAL IV ONE (11:12)
[2020-04-07] MEDS: NITROPRUSSIDE 100 MG in DEXTROSE 5% 250 ML IV SCH (12:21)
[2020-04-07] MEDS: LACTATED RINGERS 1,000 ML IV SCH ×2 (12:21→22:45)
[2020-04-07] MEDS: PHENYLEPHRINE DRIP 40 MG/250 ML PREMIX IV SCH (12:21)
[2020-04-07 17:21] VITALS: BP 118/49
[2020-04-07] MEDS ORDERED: NICOTINE LOZENGES PO PRN (18:30)
[2020-04-07] MEDS ORDERED: MIRTAZAPINE 15 MG TABLET PO SCH (21:00)
[2020-04-07] MEDS ORDERED: ASPIRIN EC 81 MG TABLET PO SCH (21:00)
[2020-04-07] MEDS ORDERED: ESZOPICLONE 1 MG TABLET PO PRN (21:52)
[2020-04-07] MEDS: POTASSIUM CHLORIDE 10 MEQ TABLET PO SCH (22:28)
[2020-04-07] MEDS: BISOPROLOL 5 MG TABLET PO SCH (22:29)
[2020-04-07] MEDS ORDERED: ZALEPLON 5 MG CAPSULE PO PRN (22:30)
[2020-04-08] MEDS: LACTATED RINGERS 1,000 ML IV SCH (08:12)
[2020-04-08] MEDS ORDERED: LOPERAMIDE 2 MG CAPSULE PO PRN (08:45)
[2020-04-08] MEDS ORDERED: CLOPIDOGREL 75 MG TABLET PO SCH ×2 (09:00)
[2020-04-08] MEDS ORDERED: FUROSEMIDE 20 MG TABLET PO SCH (09:00)
[2020-04-08] MEDS ORDERED: ASPIRIN EC 81 MG TABLET PO SCH (09:00)
[2020-04-08] MEDS ORDERED: SPIRONOLACTONE 25 MG TABLET PO SCH (09:00)
[2020-04-08] MEDS ORDERED: MAGNESIUM CHLORIDE 64 MG TABLET PO SCH (09:00)
[2020-04-08] MEDS: BISOPROLOL 5 MG TABLET PO SCH (09:02)
[2020-04-08] MEDS: POTASSIUM CHLORIDE 10 MEQ TABLET PO SCH (09:02)
[2020-04-08] MEDS: NITROPRUSSIDE 100 MG in DEXTROSE 5% 250 ML IV SCH (11:32)
[2020-04-08] MEDS: PHENYLEPHRINE DRIP 40 MG/250 ML PREMIX IV SCH (11:32)
[2020-04-08] MEDS ORDERED: NICOTINE 2 MG BUCCAL PRN (15:02)
== END 2020-04-08 16:00 | disposition home or self-care (01) | DRG 38 ==
LOC: N.SDSINP 06:42 → N.ICU 11:48
PROVIDERS: ADMIT Surgery; ATTEND Surgery